=== PATIENT | male | born 1955 | race African-American/Black ===

== ENCOUNTER 2017-01-26 21:19 | Inpatient (IN) | payer SELFPAY ==
[~2017-01-26] VITALS: Ht 182.9 cm; Wt 88.8 kg
[~2017-01-26 21:19] MED LIST: LOMO PO; PRIN10TA PO; ZOFR4TAB3 SL; glucometer
[2017-01-26 21:20] VITALS: BP 240/119; PULSE 106; RESP 16; TEMP 98.6; O2SAT 97
--- NOTE | 2017-01-26 21:42 | PD ---
Physical Exam Date Seen by Provider: Jan 26, 2017 Time Seen by Provider: 21:40 Narrative 61-year-old black male presents emergency department for evaluation of hypertension. Patient has not been on his medicine recently. Vital signs reviewed. Pt waiting for bed placement. Data Data Last Documented VS Vital Signs Date Time Temp Pulse Resp B/P (MAP) Pulse Ox O2 Delivery O2 Flow Rate FiO2 01/26/17 21:20 98.6 106 16 240/119 (159) 97 Room Air [facility] Medical Record Reviewed: No Supervised Visit with KARI: Walker Bagley Jan 26, 2017 21:42
--- NOTE | 2017-01-26 21:53 | PD ---
HPI Chief Complaint: Hypertension Time Seen by Provider: 21:52 Travel History International Travel<30 days: No Contact w/Intl Traveler<30days: No Traveled to known affect area: No History of Present Illness HPI 61-year-old Afro-Honduran male presents emergency Department with reports of "getting in an argument earlier, and feeling like his blood pressure was elevated." Patient has history of hypertension which was treated in the distant past but he can't remember when, or with what. Patient also states he is type II diabetic but is not taking any current medications. 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 Patient denies headache, chest pain, shortness breath, or edema. Patient states he is over his argument, but did state he was somewhat depressed at that time but denies suicidal or homicidal ideation. He does not smoke, drink, or use other drugs. He currently takes no medications. He is currently pain-free. He has no known drug allergies. PFSH Past Medical History Diabetes: Yes Patient Takes Glucophage: No Diminished Hearing: No Tetanus Vaccination: Unknown Influenza Vaccination: No Past Surgical History Surgical History: No Previous Surgery Social History Alcohol Use: No Tobacco Use: No Substance Use: No Allergies-Medications (Allergen,Severity, Reaction): Coded Allergies: No Known Allergies (Verified Adverse Reaction, Unknown, 01/26/17) Reported Meds & Prescriptions Reported Meds & Active Scripts Active No Active Prescriptions or Reported Medications Review of Systems Except as stated in HPI: all other systems reviewed are Neg General / Constitutional: No: Fever Eyes: No: Visual changes HENT: No: Headaches Cardiovascular: No: Chest Pain or Discomfort Respiratory: No: Shortness of Breath Gastrointestinal: No: Abdominal Pain Genitourinary: No: Dysuria Musculoskeletal: No: Pain Skin: No Rash Neurologic: No: Weakness Psychiatric: No: Depression Endocrine: No: Polydipsia Hematologic/Lymphatic: No: Easy Bruising Physical Exam Narrative GENERAL: Patient appears in no acute distress. SKIN: Warm and dry. Normal color. Normal turgor. HEAD: Atraumatic. Normocephalic. EYES: Pupils equal and round. No scleral icterus. No injection or drainage. ENT: No nasal bleeding or discharge. Mucous membranes pink and moist. Pharynx is clear. Airway is patent. NECK: Trachea midline. No JVD. CARDIOVASCULAR: Regular rate and rhythm. RESPIRATORY: No accessory muscle use. Clear to auscultation. Breath sounds equal bilaterally. GASTROINTESTINAL: Abdomen soft, non-tender, nondistended. Hepatic and splenic margins not palpable. MUSCULOSKELETAL: Extremities without clubbing, cyanosis, or edema. No obvious deformities. NEUROLOGICAL: Awake and alert. No obvious cranial nerve deficits. Motor grossly within normal limits. Five out of 5 muscle strength in the arms and legs. Normal speech. PSYCHIATRIC: Appropriate mood and affect; insight and judgment normal. Data Data Last Documented VS Vital Signs Date Time Temp Pulse Resp B/P (MAP) Pulse Ox O2 Delivery O2 Flow Rate FiO2 01/26/17 22:08 108 18 236/121 (159) 99 Room Air 01/26/17 21:20 98.6 Orders Orders Electrocardiogram (01/26/17 22:) Ckmb (Isoenzyme) Profile (01/26/17 22:01) Complete Blood Count With Diff (01/26/17 22:) Comprehensive Metabolic Panel (01/26/17 22:) Magnesium (Mg) (01/26/17 22:01) Prothrombin Time / Inr (Pt) (01/26/17 22:01) Act Partial Throm Time (Ptt) (01/26/17 22:01) Troponin I (01/26/17 22:01) Chest, Single Ap (01/26/17 22:01) Ecg Monitoring (01/26/17 22:) Bilateral Bp Monitoring (01/26/17 22:01) Iv Access Insert/Monitor (01/26/17 22:01) Oximetry (01/26/17 22:01) Oxygen Administration (01/26/17 22:01) Sodium Chloride 0.9% Flush (Ns Flush) (01/26/17 22:15) Sodium Chlorid 0.9% 500 Ml Inj (Ns 500 M (01/26/17 22:15) Blood Glucose (01/26/17 22:01) Diltiazem Inj (Cardizem Inj) (01/26/17 22:15) B-Type Natriuretic Peptide (01/26/17 22:36) MDM Medical Decision Making Medical Screen Exam Complete: Yes Emergency Medical Condition: Yes Differential Diagnosis Hypertensive crisis. Renal disease. Type 2 diabetes. Narrative Course Patient is medically stable at time of exam. EKG shows sinus tachycardia with moderate T-wave abnormalities noted. Labs ordered including CBC, CMP, cardiac panel, PT PTT and INR, proBNP. Chest x-ray is ordered. IV access is obtained and the patient is given 20 mg diltiazem IV. Chest x-ray shows mild hazy opacity in the lung bases that present on atelectasis per the radiologist. 2300 hrs. labs are pending. Patient is discussed with Dr. Hassan who assumes care of the patient will determine final disposition. Scripts No Active Prescriptions or Reported Meds Condition: Stable Javy Amado Jan 26, 2017 21:53
[2017-01-26 22:06] VITALS: BP 251/130; PULSE 108; RESP 18; O2SAT 98
[2017-01-26 22:08] VITALS: BP 236/121; PULSE 108; RESP 18; O2SAT 99
[2017-01-26] MEDS ORDERED: DILTIAZEM HCL 25 MG/5 ML VIAL IV ONE (22:15)
[2017-01-26] MEDS ORDERED: SODIUM CHLORIDE 0.9% FLUSH 10 ML FLUSH IVF PRN (22:15)
[2017-01-26] MEDS ORDERED: SODIUM CHLORID 0.9% 500 ML INJ 500 ML IV ONE (22:15)
--- NOTE | 2017-01-26 22:28 | RADRPT ---
EXAM DATE/TIME: 01/26/2017 22:23 [facility] COMPARISON: No previous studies available for comparison. INDICATIONS : Chest pain. MEDICAL HISTORY : Hypertension. SURGICAL HISTORY : None. ENCOUNTER: Initial ACUITY: 1 day PAIN SCORE: 9/10 LOCATION: middle chest. FINDINGS: A single view of the chest demonstrates the lungs to be symmetrically aerated without evidence of mas s, consolidative infiltrate or effusion. There is mild hazy opacity at the lung bases. The cardiomed iastinal contours are unremarkable. Osseous structures are intact. CONCLUSION: Mild hazy opacity in the lung bases are present atelectasis. Lake Ruiz MD on January 26, 2017 at 22:26 Board Certified Radiologist. This report was verified electronically.
[2017-01-26 23:05] LABS: AUTOMATED NEUTROPHIL # 3.4 TH/MM3 (1.8-7.7); BASOPHIL # 0.1 TH/MM3 (0-0.2); BASOPHIL % 1.1 % (0.0-2.0); EOSINOPHIL # 0.2 TH/MM3 (0-0.4); EOSINOPHIL % 2.9 % (0.0-4.0); HEMATOCRIT 35.4 % (39.0-51.0); HEMO FLAGS DIFF FINAL; LYMPH % 33.9 % (9.0-44.0); LYMPHOCYTE # 2.3 TH/MM3 (1.0-4.8); MEAN CELL VOLUME 80.7 FL (80.0-100.0); MEAN CORPUSCULAR HEMOGLOBIN 27.4 PG (27.0-34.0); MEAN CORPUSCULAR HGB CONC 33.9 % (32.0-36.0); MONO % 10.5 % (0.0-8.0); NEUT % 51.6 % (16.0-70.0); PLATELET COUNT 184 TH/MM3 (150-450); RED BLOOD COUNT 4.38 MIL/MM3 (4.50-5.90); RED CELL DISTRIBUTION WIDTH 14.4 % (11.6-17.2); WHITE BLOOD COUNT 6.6 TH/MM3 (4.0-11.0)
[2017-01-26 23:18] LABS: APTT (PATIENT) 25.8 SEC (24.3-30.1); PROTHROMBIN TIME - PATIENT 11.6 SEC (9.8-11.6)
[2017-01-26 23:31] LABS: ALKALINE PHOSPHATASE 75 U/L (45-117); ALT (GPT) 50 U/L (12-78); ANION GAP 9 MEQ/L (5-15); AST (GOT) 46 U/L (15-37); BICARBONATE 25.4 MEQ/L (21.0-32.0); BLOOD UREA NITROGEN 25 MG/DL (7-18); CHLORIDE 103 MEQ/L (98-107); CREATINE KINASE 489 U/L (39-308); GLOMERULAR FILTRATION RATE 56 ML/MIN (>89); MAGNESIUM 1.7 MG/DL (1.5-2.5); POTASSIUM 4.2 MEQ/L (3.5-5.1); SODIUM (NA) 137 MEQ/L (136-145); TOTAL BILIRUBIN ADULT 0.4 MG/DL (0.2-1.0)
[2017-01-26 23:43] LABS: CKMB 6.9 NG/ML (0.5-3.6)
[2017-01-27] VITALS (18 sets, daily range): BP systolic 146–225; BP diastolic 79–115; PULSE 93–105; RESP 16–28; TEMP 98.4–98.7; O2SAT 96–100
[2017-01-27] MEDS ORDERED: FUROSEMIDE 40 MG/4 ML VIAL IV PUSH ONE
[2017-01-27] MEDS ORDERED: NITROGLYCERIN-D5W 50 MG/250 ML 250 ML IV ONE
--- NOTE | 2017-01-27 00:04 | PD ---
Data Data Last Documented VS Vital Signs Date Time Temp Pulse Resp B/P (MAP) Pulse Ox O2 Delivery O2 Flow Rate FiO2 01/26/17 22:08 108 18 236/121 (159) 99 Room Air 01/26/17 21:20 98.6 Orders Orders Electrocardiogram (01/26/17 22:01) Ckmb (Isoenzyme) Profile (01/26/17 22:01) Complete Blood Count With Diff (01/26/17 22:01) Comprehensive Metabolic Panel (01/26/17 22:) Magnesium (Mg) (01/26/17 22:01) Prothrombin Time / Inr (Pt) (01/26/17 22:01) Act Partial Throm Time (Ptt) (01/26/17 22:01) Troponin I (01/26/17 22:) Chest, Single Ap (01/26/17 22:01) Ecg Monitoring (01/26/17 22:01) Bilateral Bp Monitoring (01/26/17 22:) Iv Access Insert/Monitor (01/26/17 22:) Oximetry (01/26/17 22:) Oxygen Administration (01/26/17 22:01) Sodium Chloride 0.9% Flush (Ns Flush) (01/26/17 22:15) Sodium Chlorid 0.9% 500 Ml Inj (Ns 500 M (01/26/17 22:15) Blood Glucose (01/26/17 22:01) Diltiazem Inj (Cardizem Inj) (01/26/17 22:15) B-Type Natriuretic Peptide (01/26/17 22:36) CKMB (01/26/17 22:55) CKMB% (01/26/17 22:55) Nitroglycerin-D5w 50 Mg/250 Ml (Nitrogly (01/27/17 00:00) Furosemide Inj (Lasix Inj) (01/27/17 00:00) Drug Screen, Random Urine (01/27/17 00:09) Admit Order (Ed Use Only) (01/27/17 ) Pest Control Chemical Technician / Telemetry CATRACHO.Q8H (01/27/17 00:11) Vital Signs (Adult) Q4H (01/27/17 00:11) Diet Heart Healthy (01/27/17 Breakfast) Activity Bed Rest (01/27/17 00:11) Labs Laboratory Tests Test 01/26/17 22:55 White Blood Count 6.6 TH/MM3 Red Blood Count 4.38 MIL/MM3 Hemoglobin 12.0 GM/DL Hematocrit 35.4 % Mean Corpuscular Volume 80.7 FL Mean Corpuscular Hemoglobin 27.4 PG Mean Corpuscular Hemoglobin Concent 33.9 % Red Cell Distribution Width 14.4 % Platelet Count 184 TH/MM3 Mean Platelet Volume 9.6 FL Neutrophils (%) (Auto) 51.6 % Lymphocytes (%) (Auto) 33.9 % Monocytes (%) (Auto) 10.5 % Eosinophils (%) (Auto) 2.9 % Basophils (%) (Auto) 1.1 % Neutrophils # (Auto) 3.4 TH/MM3 Lymphocytes # (Auto) 2.3 TH/MM3 Monocytes # (Auto) 0.7 TH/MM3 Eosinophils # (Auto) 0.2 TH/MM3 Basophils # (Auto) 0.1 TH/MM3 CBC Comment DIFF FINAL Differential Comment Prothrombin Time 11.6 SEC Prothromb Time International Ratio 1.0 RATIO Activated Partial Thromboplast Time 25.8 SEC Blood Urea Nitrogen 25 MG/DL Creatinine 1.54 MG/DL Random Glucose 154 MG/DL Total Protein 7.9 GM/DL Albumin 3.3 GM/DL Calcium Level 8.5 MG/DL Magnesium Level 1.7 MG/DL Alkaline Phosphatase 75 U/L Aspartate Amino Transf (AST/SGOT) 46 U/L Alanine Aminotransferase (ALT/SGPT) 50 U/L Total Bilirubin 0.4 MG/DL Sodium Level 137 MEQ/L Potassium Level 4.2 MEQ/L Chloride Level 103 MEQ/L Carbon Dioxide Level 25.4 MEQ/L Anion Gap 9 MEQ/L Estimat Glomerular Filtration Rate 56 ML/MIN Total Creatine Kinase 489 U/L Creatine Kinase MB 6.9 NG/ML Creatine Kinase MB % 1.4 % Troponin I 0.04 NG/ML B-Type Natriuretic Peptide 514 PG/ML MDM Medical Record Reviewed: Yes Supervised Visit with KARI: Yes Narrative Course I, Dr. Hassan, have reviewed the advance practice practitioner's documentation and am in agreement, met with the patient face to face, made the diagnosis, and the medical decision making was done by me. *My assessment and Findings: The patient has new CHF. He is hypertensive at 230/112 with a heart rate of 110. He denies feeling short of breath or having chest pain and appears comfortable. 40 mg IV Lasix given. Nitro drip started. Patient has no outside follow-up and will be admitted for new onset CHF. d/w Dr Finney Diagnosis Primary Impression: CHF (congestive heart failure) Qualified Codes: I50.9 - Heart failure, unspecified Additional Impression: Hypertension Qualified Codes: I10 - Essential (primary) hypertension Admitting Information Admitting Physician Requests: Observation Scripts No Active Prescriptions or Reported Meds Condition: Stable Dandre Hassan MD Jan 27, 2017 00:04
[2017-01-27] MEDS ORDERED: SENNOSIDES 8.6 MG TAB PO PRN (00:15)
[2017-01-27] MEDS ORDERED: LACTULOSE SYRUP 20 GM/30 ML CUP PO PRN (00:15)
[2017-01-27] MEDS ORDERED: NALOXONE HCL 0.4 MG/ML AMP IV PUSH PRN (00:15)
[2017-01-27] MEDS ORDERED: BISACODYL 10 MG SUPP RECTAL PRN (00:15)
[2017-01-27] MEDS ORDERED: ONDANSETRON HCL 4 MG/2 ML VIAL IVP PRN (00:15)
[2017-01-27] MEDS ORDERED: MAGNESIUM HYDROXIDE SUSP 30 ML CUP PO PRN (00:15)
[2017-01-27] MEDS ORDERED: SODIUM CHLORIDE 0.9% FLUSH 10 ML FLUSH IV FLUSH PRN (00:15)
[2017-01-27] MEDS ORDERED: CARVEDILOL 3.125 MG TAB PO ONE (00:15)
[2017-01-27] MEDS ORDERED: ENALAPRILAT 1.25 MG/ML VIAL IV PUSH PRN ×2 (00:45→10:30)
--- NOTE | 2017-01-27 00:47 | HHI.HP ---
[facility] No Primary Care Physician Admission Diagnosis CHF, HTN Diagnoses: Travel History International Travel<30 Days: No Contact w/Intl Traveler <30 Da: No Traveled to Known Affected Are: No History of Present Illness 61-year-old male with a history of hypertension, not on medications for the past year, diabetes diet supposedly controlled who presents with a three-week history of mild nonproductive cough, 2 day history of generalized fatigue; he got into an argument today with his significant other, and felt that his blood pressure was high. He denies any chest pain or shortness of breath. Patient said he did start taking a cough/cold medicine 2 days ago, which correlates with the onset of his generalized fatigue. She denies any fevers, chills, nausea, vomiting, diarrhea, constipation, dysuria, headache. 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 Review of Systems Except as stated in HPI: all other systems reviewed are Neg Past Family Social History Past Medical History Hypertension not on medications at this time. Diabetes. Past Surgical History Patient denies any history of surgery Allergies: Coded Allergies: No Known Allergies (Verified Adverse Reaction, Unknown, 01/26/17) Family History Patient is unsure what his parents from. He is unsure of the medical history. Social History Patient denies any history of smoking. Denies any drinking. Denies any illicit drugs. Physical Exam Vital Signs Vital Signs Date Time Temp Pulse Resp B/P (MAP) Pulse Ox O2 Delivery O2 Flow Rate FiO2 01/26/17 22:08 108 18 236/121 (159) 99 Room Air 01/26/17 22:06 108 18 251/130 (170) 98 Room Air 01/26/17 21:43 16 01/26/17 21:20 98.6 106 16 240/119 (159) 97 Room Air Physical Exam GENERAL: This is a well-nourished, well-developed patient, in no apparent distress. Alert and oriented 3. SKIN: No rashes, ecchymoses or lesions. Cool and dry. HEAD: Atraumatic. Normocephalic. No temporal or scalp tenderness. EYES: Pupils equal round and reactive. Extraocular motions intact. No scleral icterus. No injection or drainage. ENT: Nose without bleeding, purulent drainage or septal hematoma. Throat without erythema, tonsillar hypertrophy or exudate. Uvula midline. Airway patent. NECK: Trachea midline. No JVD or lymphadenopathy. Supple, nontender, no meningeal signs. CARDIOVASCULAR: Regular rate and rhythm without murmurs, gallops, or rubs. RESPIRATORY: Clear to auscultation. Breath sounds equal bilaterally. No wheezes , rales, or rhonchi. GASTROINTESTINAL: Abdomen soft, non-tender, nondistended. No hepato-splenomegaly , or palpable masses. No guarding. MUSCULOSKELETAL: Extremities without clubbing, cyanosis, or edema. No joint tenderness, effusion, or edema noted. No calf tenderness. Negative Homans sign bilaterally. NEUROLOGICAL: Awake and alert. Right eye visual loss. Left eye for reactive. Vision intact in the left eye. Cranial nerves otherwise intact. Motor and sensory grossly within normal limits. Five out of 5 muscle strength in all muscle groups. Normal speech. Laboratory Laboratory Tests Test 01/26/17 22:55 White Blood Count 6.6 Red Blood Count 4.38 Hemoglobin 12.0 Hematocrit 35.4 Mean Corpuscular Volume 80.7 Mean Corpuscular Hemoglobin 27.4 Mean Corpuscular Hemoglobin Concent 33.9 Red Cell Distribution Width 14.4 Platelet Count 184 Mean Platelet Volume 9.6 Neutrophils (%) (Auto) 51.6 Lymphocytes (%) (Auto) 33.9 Monocytes (%) (Auto) 10.5 Eosinophils (%) (Auto) 2.9 Basophils (%) (Auto) 1.1 Neutrophils # (Auto) 3.4 Lymphocytes # (Auto) 2.3 Monocytes # (Auto) 0.7 Eosinophils # (Auto) 0.2 Basophils # (Auto) 0.1 CBC Comment DIFF FINAL Differential Comment Prothrombin Time 11.6 Prothromb Time International Ratio 1.0 Activated Partial Thromboplast Time 25.8 Blood Urea Nitrogen 25 Creatinine 1.54 Random Glucose 154 Total Protein 7.9 Albumin 3.3 Calcium Level 8.5 Magnesium Level 1.7 Alkaline Phosphatase 75 Aspartate Amino Transf (AST/SGOT) 46 Alanine Aminotransferase (ALT/SGPT) 50 Total Bilirubin 0.4 Sodium Level 137 Potassium Level 4.2 Chloride Level 103 Carbon Dioxide Level 25.4 Anion Gap 9 Estimat Glomerular Filtration Rate 56 Total Creatine Kinase 489 Creatine Kinase MB 6.9 Creatine Kinase MB % 1.4 Troponin I 0.04 B-Type Natriuretic Peptide 514 Result Diagram: 01/26/17225401/26/172254 Imaging Last Impressions Chest X-Ray 01/26/172200 Signed Impressions: Service Date/Time: Thursday, January 26, 2017 22:23 - CONCLUSION: Mild hazy opacity in the lung bases are present atelectasis. MD Juancarlos Calvin VTE Risk Assessment Juancarlos VTE Risk Assessment: No/Low Risk (score <= 1) Caprini Risk Assessment Model Point Value = 1 Point Value = 2 Point Value = 3 Point Value = 5 Age 41-60 Minor surgery BMI > 25 kg/m2 Swollen legs Varicose veins or History of unexplained or recurrent spontaneous Oral contraceptives or hormone replacement Sepsis (< 1 month) Serious lung disease, including pneumonia (< 1 month) Abnormal pulmonary function Acute myocardial infarction Congestive heart failure (< 1 month) History of inflammatory bowel disease Medical patient at bed rest Age 61-74 Arthroscopic surgery Major open surgery (> 45 min) Laparoscopic surgery (> 45 min) Malignancy Confined to bed (> 72 hours) Immobilizing plaster cast Central venous access Age >= 75 History of VTE Family history of VTE Factor V Leiden Prothrombin [id number] Lupus anticoagulant Anticardiolipin antibodies Elevated serum homocysteine Heparin-induced thrombocytopenia Other congenital or acquired thrombophilia Stroke (< 1 month) Elective arthroplasty Hip, pelvis, or leg fracture Acute spinal cord injury (< 1 month) Prophylaxis Regimen Total Risk Factor Score Risk Level Prophylaxis Regimen 0-1 Low Early ambulation 2 Moderate Order ONE of the following: *Sequential Compression Device (SCD) *Heparin 5000 units SQ BID 3-4 Higher Order ONE of the following medications: *Heparin 5000 units SQ TID *Enoxaparin/Lovenox 40 mg SQ daily (WT < 150 kg, CrCl > 30 mL/min) *Enoxaparin/Lovenox 30 mg SQ daily (WT < 150 kg, CrCl > 10-29 mL/min) *Enoxaparin/Lovenox 30 mg SQ BID (WT < 150 kg, CrCl > 30 mL/min) AND/OR *Sequential Compression Device (SCD) 5 or more Highest Order ONE of the following medications: *Heparin 5000 units SQ TID (Preferred with Epidurals) *Enoxaparin/Lovenox 40 mg SQ daily (WT < 150 kg, CrCl > 30 mL/min) *Enoxaparin/Lovenox 30 mg SQ daily (WT < 150 kg, CrCl > 10-29 mL/min) *Enoxaparin/Lovenox 30 mg SQ BID (WT < 150 kg, CrCl > 30 mL/min) AND *Sequential Compression Device (SCD) Assessment and Plan Assessment and Plan //Accelerated hypertension. -Systolic blood pressure 240 on admission -With secondary CHF exacerbation. -Likely secondary to cough medicine. -Patient denies illicit drugs. Drug screen pending. -Counseled patient on avoiding cough medicine Blood pressure not improved after diltiazem, Lasix in the ER. Nitroglycerin drip has been started. -We'll start on Coreg, daily Lasix, losartan expect to start isosorbide tomorrow //CHF exacerbation. BNP in the 500s. -No pulmonary edema. Trace peripheral edema. Cardiac exam pending. Likely exacerbated by hypertension, 2/2 to cough medicine //Nonproductive cough past 3 weeks. Atelectasis on chest x-ray. Personally reviewed. -ipratropium nebs, Incentive spirometer and Acapella //Impaired kidney function. Creatinine 1.5. Unknown baseline. Continue to monitor. //History of diabetes mellitus - Patient reports controlled with diet. We'll check A1c. Insulin sliding scale Discussed Condition With Patient, nurse, ED physician Physician Certification 2 Midnight Certification Type: Admission for Inpatient Services Order for Inpatient Services The services are ordered in accordance with Medicare regulations or non- Medicare payer requirements, as applicable. In the case of services not specified as inpatient-only, they are appropriately provided as inpatient services in accordance with the 2-midnight benchmark. Estimated LOS (days): 2 days is the estimated time the patient will need to remain in the hospital, assuming treatment plan goals are met and no additional complications. Post-Hospital Plan: Arvin Bellamy MD Jan 27, 2017 00:47
[2017-01-27] MEDS ORDERED: CHLORHEXIDINE GLUCONATE 2 % 1 PACK (2 CLOTHS)(extra cloths) TOPICAL PRN (02:30)
[2017-01-27] MEDS: RESP: IPRATROPIUM 0.5 MG/2.5 ML NEB NEB SCH ×4 (03:30→21:15)
[2017-01-27] MEDS: CHLORHEXIDINE GLUCONATE 2 % 1 PACK (2 CLOTHS)(taper/protocol) TOPICAL SCH (04:00)
[2017-01-27] MEDS ORDERED: INSULIN ASPART SUPPLEMENTAL SCALE SQ SCH (08:00)
[2017-01-27] MEDS ORDERED: LOSARTAN 25 MG TAB PO SCH (09:00)
[2017-01-27] MEDS ORDERED: CARVEDILOL 3.125 MG TAB PO SCH (09:00)
[2017-01-27] MEDS ORDERED: LISINOPRIL 10 MG TAB PO SCH (09:00)
[2017-01-27] MEDS ORDERED: FUROSEMIDE 20 MG TAB PO SCH (09:00)
[2017-01-27] MEDS: SODIUM CHLORIDE 0.9% FLUSH 10 ML FLUSH IV FLUSH SCH ×2 (10:01→21:48)
[2017-01-27] MEDS ORDERED: DEXTROSE 50% IN WATER 50 ML VIAL(D50) IV PUSH PRN (10:30)
[2017-01-27] MEDS ORDERED: cloNIDine HCL 0.1 MG TAB PO PRN (10:30)
[2017-01-27] MEDS ORDERED: GLUCAGON 1 MG/ML VIAL OTHER PRN (10:30)
--- NOTE | 2017-01-27 11:09 | HHI.PR ---
Subjective Remarks follow-up accelerated hypertension. Still requiring nitro drip. Improving lightheadedness and weakness. Discussed with RN Objective Vitals Vital Signs Date Time Temp Pulse Resp B/P (MAP) Pulse Ox O2 Delivery O2 Flow Rate FiO2 01/27/17 09:06 98 01/27/17 06:00 97 01/27/17 04:00 97 01/27/17 03:31 99 01/27/17 03:30 97 187/104 01/27/17 03:15 97 184/103 01/27/17 03:00 97 197/106 01/27/17 02:35 106 215/105 01/27/17 02:30 105 01/27/17 02:11 101 20 193/104 (133) 100 Room Air 01/27/17 02:01 100 18 200/101 (134) 96 Room Air 01/27/17 01:37 101 18 212/115 (147) 99 Room Air 01/27/17 01:17 103 16 225/107 (146) 99 Room Air 01/27/17 00:36 110 232/115 01/26/17 22:08 108 18 236/121 (159) 99 Room Air 01/26/17 22:06 108 18 251/130 (170) 98 Room Air 01/26/17 21:43 16 01/26/17 21:20 98.6 106 16 240/119 (159) 97 Room Air I/O 01/26/17 01/26/17 01/26/17 01/27/17 01/27/17 01/27/17 07:00 15:00 23:00 07:00 15:00 23:00 Intake Total 500 ml Output Total 1950 ml Balance -1450 ml Intake IV Total 500 ml Output Urine Total 1950 ml # Voids 5 Result Diagram: 01/26/17225401/26/172254 Imaging Last Impressions Chest X-Ray 01/26/172200 Signed Impressions: Service Date/Time: Thursday, January 26, 2017 22:23 - CONCLUSION: Mild hazy opacity in the lung bases are present atelectasis. Lake Ruiz MD Objective Remarks GENERAL: Well-developed, well-nourished critically ill patient SKIN: Warm and dry. HEAD: Atraumatic. Normocephalic. CARDIOVASCULAR: Regular rate and rhythm. RESPIRATORY: No accessory muscle use. Clear to auscultation. Breath sounds equal bilaterally. GASTROINTESTINAL: Abdomen soft, non-tender, nondistended. MUSCULOSKELETAL: Extremities without clubbing, cyanosis, or edema. No obvious deformities. NEUROLOGICAL: Awake and alert. No obvious cranial nerve deficits. Motor grossly within normal limits. Five out of 5 muscle strength in the arms and legs. Normal speech. Procedures none A/P Problem List: (1) Hypertension ICD Code: I10 - Essential (primary) hypertension Status: Acute (2) CHF (congestive heart failure) ICD Code: I50.9 - Heart failure, unspecified Status: Acute Assessment and Plan Accelerated hypertension with history of noncompliance. -Systolic blood pressure 240 on admission -With secondary CHF exacerbation. -Likely secondary to cough medicine. -Patient denies illicit drugs. Drug screen pending. -Counseled patient on avoiding cough medicine with decongestant Blood pressure not improved after diltiazem, Lasix in the ER. Nitroglycerin drip has been started. Wean and discontinue keep blood pressure less than 160/ 90 -Continue Coreg, daily Lasix, losartan expect to start isosorbide tomorrow. Add as needed IV hydralazine and by mouth clonidine CHF exacerbation. BNP in the 500s. -No pulmonary edema. Trace peripheral edema. Echocardiogram pending. Likely exacerbated by hypertension, 2/2 to cough medicine Troponin elevation. Patient denies chest pain. Likely secondary to uncontrolled hypertension. Await echocardiogram. Consider stress test Nonproductive cough past 3 weeks. Atelectasis on chest x-ray. Personally reviewed. -ipratropium nebs, Incentive spirometer and Acapella Chronic kidney disease stage II. Avoid nephrotoxins. Continue to monitor closely while on Lasix and losartan. Slightly elevated AST likely from passive congestion. Monitor History of diabetes mellitus - Patient reports controlled with diet. We'll check A1c. Insulin sliding scale DVT prophylaxis with SCD and early ambulation. Hold Pharmacological prophylaxis pending control of BP. Discharge Planning Patient is critically ill and needs to be monitored in the ICU setting currently requiring intravenous antihypertensives. Critical care time spent 35 minutes Problem Qualifiers (1) Hypertension: Qualified Codes: I10 - Essential (primary) hypertension (2) CHF (congestive heart failure): Qualified Codes: I50.9 - Heart failure, unspecified Jonny Treviño MD Jan 27, 2017 11:09
--- NOTE | 2017-01-27 12:25 | ECHRPT ---
Indication: HEART FAILURE CONCLUSIONS Normal left ventricular size. Moderate concentric left ventricular hypertrophy. The left ventricular systolic function is normal with an estimated ejection fraction in the range of 60-65%. Normal wall motion. The left atrial size is mildly dilated. Mild aortic valve sclerosis is present. Mild aortic valve regurgitation. There is mild tricuspid valve regurgitation. There is estimated mild systolic pulmonary pressure is 40 mm Hg,. BP: 187 / 104 HR: Rhythm: Sinus MEASUREMENTS (Male / Female) Normal Values Technical Quality:Fair 2D ECHO LV Diastolic Diameter PLAX 4.6 cm 4.2 - 5.9 / 3.9 - 5.3 cm LV Systolic Diameter PLAX 3.4 cm IVS Diastolic Thickness 1.4 cm 0.6 - 1.0 / 0.6 - 0.9 cm LVPW Diastolic Thickness 1.4 cm 0.6 - 1.0 / 0.6 - 0.9 cm LV Relative Wall Thickness 0.6 LVOT Diameter 2.2 cm Aortic Root Diameter 3.2 cm LA Systolic Diameter LX 3.5 cm 3.0 - 4.0 / 2.7 - 3.8 cm M-MODE AV Cusp Separation MM 1.6 cm DOPPLER AV Peak Velocity 215.0 cm/s AV Peak Gradient 18.5 mmHg AV Mean Gradient 11.0 mmHg AV Velocity Time Integral 37.2 cm AI Peak Velocity 473.0 cm/s AI Peak Gradient 89.5 mmHg AI Pressure Half Time 436.0 ms LVOT Peak Velocity 112.0 cm/s LVOT Peak Gradient 5.0 mmHg LVOT Velocity Time Integral 19.8 cm AV Area Cont Eq vti 2.0 cm AV Area Cont Eq pk 2.0 cm Mitral E Point Velocity 90.3 cm/s Mitral A Point Velocity 118.0 cm/s Mitral E to A Ratio 0.8 LV E' Lateral Velocity 6.0 cm/s Mitral E to LV E' Lateral Ratio 14.9 LV E' Septal Velocity 4.9 cm/s Mitral E to LV E' Septal Ratio 18.5 TR Peak Velocity 276.0 cm/s TR Peak Gradient 30.5 mmHg PV Peak Velocity 91.0 cm/s PV Peak Gradient 3.3 mmHg FINDINGS LEFT VENTRICLE Normal left ventricular size. Moderate concentric left ventricular hypertrophy. The left ventricular systolic function is normal with an estimated ejection fraction in the range of 60-65%. Normal wall motion. RIGHT VENTRICLE Normal right ventricular size and systolic function. LEFT ATRIUM The left atrial size is mildly dilated. RIGHT ATRIUM The right atrial size is normal. ATRIAL SEPTUM Normal atrial septal thickness without atrial level shunting by limited color doppler interrogation. AORTA The aortic root and proximal ascending aorta are normal in size on limited imaging. MITRAL VALVE Structurally normal mitral valve. No mitral valve stenosis or regurgitation. AORTIC VALVE Mild aortic valve sclerosis is present. Mild aortic valve regurgitation. TRICUSPID VALVE There is mild tricuspid valve regurgitation. There is estimated mild systolic pulmonary pressure is 40 mm Hg, PULMONARY VALVE The pulmonary valve is not well visualized. VESSELS The inferior vena cava is normal in size. PERICARDIUM No pericardial effusion. Segun Hwang MD (Electronically Signed) Final Date:27 January 2017 12:24
[2017-01-27] MEDS: INSULIN ASPART SUPPLEMENTAL SCALE SQ SCH ×3 (12:29→21:59)
[2017-01-27 14:12] LABS: BICARBONATE 25.8 MEQ/L (21.0-32.0); POTASSIUM 3.8 MEQ/L (3.5-5.1)
[2017-01-27] MEDS ORDERED: NITROGLYCERIN-D5W 50 MG/250 ML 250 ML IV PRN (14:45)
[2017-01-27] MEDS: amLODIPine BESYLATE 5 MG TAB PO SCH (15:06)
--- NOTE | 2017-01-27 15:19 | EKG ---
Date Performed: 01/27/2017 Time Performed: 07:11:29 PTAGE: 61 years EKG: Sinus rhythm POSSIBLE LEFT ATRIAL ENLARGEMENT SEPTAL MYOCARDIAL INFARCTION , OF INDETERMINATE AGE MODERATE T-WAVE ABNORMALITY ABNORMAL ECG PREVIOUS TRACING : 01/27/2017 01.30 Compared to prior tracing no significant change DOCTOR: Margot Garcia Interpretating Date/Time 01/27/2017 15:19:14
--- NOTE | 2017-01-27 15:31 | EKG ---
Date Performed: 01/27/2017 Time Performed: 01:30:27 PTAGE: 61 years EKG: SINUS TACHYCARDIA LEFT ATRIAL ENLARGEMENT SEPTAL MYOCARDIAL INFARCTION MODERATE T-WAVE ABNO RMALITY ABNORMAL ECG PREVIOUS TRACING : 01/26/2017 21.49 Compared to prior tracing no significant change DOCTOR: Margot Garcia Interpretating Date/Time 01/27/2017 15:29:25
--- NOTE | 2017-01-27 15:36 | EKG ---
Date Performed: 01/26/2017 Time Performed: 21:49:19 PTAGE: 61 years EKG: SINUS TACHYCARDIA POSSIBLE LEFT ATRIAL ENLARGEMENT SEPTAL MYOCARDIAL INFARCTION MODERATE T- WAVE ABNORMALITY ABNORMAL ECG PREVIOUS TRACING : 06/18/2000 23.43 Compared to the previous tracing T wave changes now present DOCTOR: Margot Garcia Interpretating Date/Time 01/27/2017 15:34:47
[2017-01-27 15:58] LABS: HEMOGLOBIN A1b 0.9 %; HEMOGLOBIN F 1.2 %; HEMOGLOBIN LA1C 2.7 %; HEMOGLOBIN P3 4.8 %
[2017-01-27] MEDS: CARVEDILOL 3.125 MG TAB PO SCH (21:48)
[2017-01-28] VITALS (33 sets, daily range): BP systolic 129–194; BP diastolic 64–97; PULSE 70–113; RESP 0–32; TEMP 98.1–99.2; O2SAT 95–100
[2017-01-28] MEDS: RESP: IPRATROPIUM 0.5 MG/2.5 ML NEB NEB SCH ×4 (03:06→21:53)
[2017-01-28] MEDS: CHLORHEXIDINE GLUCONATE 2 % 1 PACK (2 CLOTHS)(taper/protocol) TOPICAL SCH (04:00)
[2017-01-28 06:53] LABS: AUTOMATED NEUTROPHIL # 4.8 TH/MM3 (1.8-7.7); BASOPHIL # 0.1 TH/MM3 (0-0.2); BASOPHIL % 0.6 % (0.0-2.0); EOSINOPHIL # 0.2 TH/MM3 (0-0.4); EOSINOPHIL % 1.9 % (0.0-4.0); HEMATOCRIT 31.4 % (39.0-51.0); HEMO FLAGS DIFF FINAL; LYMPH % 22.8 % (9.0-44.0); LYMPHOCYTE # 1.8 TH/MM3 (1.0-4.8); MEAN CELL VOLUME 80.3 FL (80.0-100.0); MEAN CORPUSCULAR HEMOGLOBIN 26.7 PG (27.0-34.0); MEAN CORPUSCULAR HGB CONC 33.2 % (32.0-36.0); MONO % 14.1 % (0.0-8.0); NEUT % 60.6 % (16.0-70.0); PLATELET COUNT 148 TH/MM3 (150-450); RED BLOOD COUNT 3.91 MIL/MM3 (4.50-5.90); RED CELL DISTRIBUTION WIDTH 14.5 % (11.6-17.2); WHITE BLOOD COUNT 7.9 TH/MM3 (4.0-11.0)
[2017-01-28 07:15] LABS: ANION GAP 9 MEQ/L (5-15); AST (GOT) 22 U/L (15-37); BICARBONATE 26.9 MEQ/L (21.0-32.0); BLOOD UREA NITROGEN 29 MG/DL (7-18); CHLORIDE 100 MEQ/L (98-107); GLOMERULAR FILTRATION RATE 45 ML/MIN (>89); POTASSIUM 3.8 MEQ/L (3.5-5.1); SODIUM (NA) 136 MEQ/L (136-145)
[2017-01-28 07:18] LABS: ALKALINE PHOSPHATASE 53 U/L (45-117); ALT (GPT) 34 U/L (12-78); TOTAL BILIRUBIN ADULT 0.3 MG/DL (0.2-1.0)
[2017-01-28] MEDS: INSULIN ASPART SUPPLEMENTAL SCALE SQ SCH ×4 (08:00→20:15)
[2017-01-28] MEDS: CARVEDILOL 3.125 MG TAB PO SCH ×2 (10:29→22:06)
[2017-01-28] MEDS: amLODIPine BESYLATE 5 MG TAB PO SCH (10:29)
[2017-01-28] MEDS: SODIUM CHLORIDE 0.9% FLUSH 10 ML FLUSH IV FLUSH SCH ×2 (10:29→20:15)
[2017-01-28] MEDS ORDERED: amLODIPine BESYLATE 5 MG TAB PO ONE (17:15)
--- NOTE | 2017-01-28 17:41 | HHI.PR ---
Subjective Remarks Patient says he is feeling better. Denies any chest pain or shortness of breath. Says the cough is getting better. No bowel movement since admission. Objective Vital Signs Date Time Temp Pulse Resp B/P (MAP) Pulse Ox O2 Delivery O2 Flow Rate FiO2 01/28/17 16:15 100 0 158/82 (107) 98 01/28/17 16:00 97 27 147/75 (99) 97 01/28/17 16:00 97 01/28/17 16:00 98.1 01/28/17 14:00 86 01/28/17 12:45 97 26 132/69 (90) 96 01/28/17 12:30 92 24 130/64 (86) 97 01/28/17 12:15 95 28 143/75 (97) 98 01/28/17 12:00 90 25 138/74 (95) 98 01/28/17 12:00 70 01/28/17 11:45 89 13 139/73 (95) 99 01/28/17 11:30 92 28 135/74 (94) 99 01/28/17 11:15 93 22 140/73 (95) 98 01/28/17 11:00 94 23 139/74 (95) 96 01/28/17 10:45 96 23 150/78 (102) 99 01/28/17 10:30 94 15 148/79 (102) 98 01/28/17 10:15 97 25 147/79 (101) 98 01/28/17 10:00 70 01/28/17 10:00 100 11 161/83 (109) 98 01/28/17 09:45 98 20 151/75 (100) 100 01/28/17 09:39 95 01/28/17 09:30 100 20 151/80 (103) 97 01/28/17 09:15 98 21 156/78 (104) 95 01/28/17 09:00 100 32 129/65 (86) 99 01/28/17 08:45 96 23 153/76 (101) 98 01/28/17 08:30 92 21 143/73 (96) 99 01/28/17 08:15 98 26 150/77 (101) 97 01/28/17 08:00 98.1 01/28/17 08:00 90 01/28/17 08:00 92 19 148/79 (102) 96 01/28/17 06:00 95 01/28/17 04:00 98 01/28/17 04:00 97 17 163/77 (105) 95 01/28/17 02:00 95 01/28/17 00:00 98.5 93 20 129/65 (86) 99 01/28/17 00:00 93 01/27/17 22:00 95 01/27/17 21:16 99 21 01/27/17 20:00 98.6 98 28 164/79 (107) 98 01/27/17 20:00 93 01/27/17 18:00 97 I/O 01/27/17 01/27/17 01/27/17 01/28/17 01/28/17 01/28/17 07:00 15:00 23:00 07:00 15:00 23:00 Intake Total 500 ml 250 ml 100 ml Output Total 1950 ml 601 ml 400 ml Balance -1450 ml 250 ml -601 ml -300 ml Intake Oral 100 ml IV Total 500 ml 250 ml Output Urine Total 1950 ml 600 ml 400 ml Stool Total 1 ml 0 ml # Voids 5 Result Diagram: 01/28/17 0530 01/28/17 0538 Objective Remarks GENERAL: Patient sitting up in bed. Appears comfortable. SKIN: Warm and dry. HEAD: Normocephalic. EYES: No scleral icterus. No injection or drainage. NECK: Supple, trachea midline. CARDIOVASCULAR: Regular rate and rhythm without murmurs, gallops, or rubs. RESPIRATORY: Breath sounds equal bilaterally. No accessory muscle use. GASTROINTESTINAL: Abdomen soft, non-tender, nondistended. MUSCULOSKELETAL: No cyanosis, or edema. BACK: Nontender without obvious deformity. No CVA tenderness. A/P Assessment and Plan //Accelerated hypertension with history of noncompliance. //CHF exacerbation //Aortic insufficiency on echo -Systolic blood pressure 240 on admission -With secondary CHF exacerbation. -Likely secondary to cough medicine. -Patient denies illicit drugs. Drug screen pending. -Counseled patient on avoiding cough medicine with decongestant Blood pressure not improved after diltiazem, Lasix in the ER. Nitroglycerin drip has been started. Wean and discontinue keep blood pressure less than 160/ 90 -Continue Coreg, daily Lasix, losartan expect to start isosorbide tomorrow. Add as needed IV hydralazine and by mouth clonidine -01/28. Still on nitro drip. However much better controlled today, systolic blood pressures in the 150s. Aortic insufficiency on echocardiogram. We'll start nitrates, hydralazine, increase amlodipine. Possibly worsened patient's cough medicine, although urine drug screen is still pending. Consult cardiology for new onset CHF. //Troponin elevation. -Likely secondary to demand ischemia from accelerated hypertension. Troponin peaked at 0.07, down to 0.05. Cardiology will be consulted for CHF. //Nonproductive cough past 3 weeks. Atelectasis on chest x-ray. Personally reviewed. -Improving. Continue ipratropium nebs, Incentive spirometer and Acapella //Chronic kidney disease stage II. Avoid nephrotoxins. Continue to monitor closely while on Lasix and losartan. -01/28. Creatinine up to 1.8. Again, unknown baseline. We'll continue to monitor. If worsens, we'll consider consultation nephrology. Avoid TRUE inhibitor for now. //Slightly elevated AST likely from passive congestion. Resolved. History of diabetes mellitus - Patient reports controlled with diet. A1c 9.0. Diabetic education. Continue Insulin sliding scale. start Levemir. Constipation. Laxatives ordered. DVT prophylaxis with SCD and early ambulation. Hold Pharmacological prophylaxis pending control of BP. Discharge Planning Expect blood pressure be better controlled by tomorrow, patient can possibly go home tomorrow. 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 May need insulin Self-pay. Appreciate cm assistance Arvin Finney MD Jan 28, 2017 17:41
[2017-01-28] MEDS: hydrALAZINE HCL 20 MG/ML VIAL IV PUSH PRN ×2 (18:19→20:16)
[2017-01-28] MEDS ORDERED: DOCUSATE SODIUM 50 MG/SENNA 8.6 MG TAB PO ONE (18:30)
[2017-01-28] MEDS ORDERED: ISOSORBIDE DINITRATE 40 MG SUSTAINED RELEASE TAB PO ONE (18:30)
[2017-01-28] MEDS: hydrALAZINE HCL 50 MG TAB PO SCH ×2 (19:14→22:06)
[2017-01-28] MEDS: INSULIN DETEMIR 100 UNITS/ML VIAL SQ SCH (20:15)
[2017-01-29] VITALS (18 sets, daily range): BP systolic 117–146; BP diastolic 55–70; PULSE 88–103; RESP 1–22; TEMP 98–99; O2SAT 94–99
[2017-01-29] MEDS: RESP: IPRATROPIUM 0.5 MG/2.5 ML NEB NEB SCH ×4 (02:50→20:35)
[2017-01-29] MEDS: CHLORHEXIDINE GLUCONATE 2 % 1 PACK (2 CLOTHS)(taper/protocol) TOPICAL SCH (04:00)
[2017-01-29] MEDS: hydrALAZINE HCL 50 MG TAB PO SCH ×3 (06:13→21:15)
[2017-01-29] MEDS: INSULIN ASPART SUPPLEMENTAL SCALE SQ SCH ×4 (08:00→21:17)
[2017-01-29] MEDS: amLODIPine BESYLATE 5 MG TAB PO SCH (09:00)
[2017-01-29] MEDS: SODIUM CHLORIDE 0.9% FLUSH 10 ML FLUSH IV FLUSH SCH ×2 (09:00→21:17)
[2017-01-29] MEDS: INSULIN DETEMIR 100 UNITS/ML VIAL SQ SCH ×2 (09:00→21:17)
--- NOTE | 2017-01-29 09:14 | HHI.PR ---
Subjective Remarks In bed,. Feels weak. No fever or chills. Denies chest pain or sob. No n/v/d/c. Objective Vitals Vital Signs Date Time Temp Pulse Resp B/P (MAP) Pulse Ox O2 Delivery O2 Flow Rate FiO2 01/29/17 08:01 98 01/29/17 06:00 100 01/29/17 04:00 94 01/29/17 04:00 99.0 94 22 117/55 (75) 96 01/29/17 02:00 93 01/29/17 00:00 93 01/29/17 00:00 99.0 93 17 129/66 (87) 98 01/28/17 22:00 113 01/28/17 21:52 100 21 01/28/17 20:00 99.2 113 20 194/97 (129) 98 01/28/17 20:00 113 01/28/17 18:15 100 01/28/17 18:00 100 01/28/17 16:15 100 0 158/82 (107) 98 01/28/17 16:00 97 27 147/75 (99) 97 01/28/17 16:00 97 01/28/17 16:00 98.1 01/28/17 14:00 86 01/28/17 12:45 97 26 132/69 (90) 96 01/28/17 12:30 92 24 130/64 (86) 97 01/28/17 12:15 95 28 143/75 (97) 98 01/28/17 12:00 90 25 138/74 (95) 98 01/28/17 12:00 70 01/28/17 11:45 89 13 139/73 (95) 99 01/28/17 11:30 92 28 135/74 (94) 99 01/28/17 11:15 93 22 140/73 (95) 98 01/28/17 11:00 94 23 139/74 (95) 96 01/28/17 10:45 96 23 150/78 (102) 99 01/28/17 10:30 94 15 148/79 (102) 98 01/28/17 10:15 97 25 147/79 (101) 98 01/28/17 10:00 70 01/28/17 10:00 100 11 161/83 (109) 98 01/28/17 09:45 98 20 151/75 (100) 100 01/28/17 09:39 95 01/28/17 09:30 100 20 151/80 (103) 97 01/28/17 09:15 98 21 156/78 (104) 95 I/O 01/28/17 01/28/17 01/28/17 01/29/17 01/29/17 01/29/17 07:00 15:00 23:00 07:00 15:00 23:00 Intake Total 100 ml 960 ml 600 ml Output Total 400 ml 600 ml 200 ml Balance -300 ml 360 ml 400 ml Intake Oral 100 ml 960 ml 600 ml IV Total 0 ml Output Urine Total 400 ml 600 ml 200 ml Stool Total 0 ml # Voids 3 # Bowel Movements 0 1 Result Diagram: 01/28/17 0530 01/28/17 0538 Imaging Last Impressions Chest X-Ray 01/26/172200 Signed Impressions: Service Date/Time: Thursday, January 26, 2017 22:23 - CONCLUSION: Mild hazy opacity in the lung bases are present atelectasis. [place] Ruiz MD Objective Remarks GENERAL: Patient sitting up in bed. Appears comfortable. SKIN: Warm and dry. HEAD: Normocephalic. EYES: No scleral icterus. No injection or drainage. NECK: Supple, trachea midline. CARDIOVASCULAR: Regular rate and rhythm without murmurs, gallops, or rubs. RESPIRATORY: Breath sounds equal bilaterally. No accessory muscle use. GASTROINTESTINAL: Abdomen soft, non-tender, nondistended. MUSCULOSKELETAL: No cyanosis, or edema. BACK: Nontender without obvious deformity. No CVA tenderness. Procedures none A/P Problem List: (1) Hypertension ICD Code: I10 - Essential (primary) hypertension Status: Acute (2) CHF (congestive heart failure) ICD Code: I50.9 - Heart failure, unspecified Status: Acute Assessment and Plan Accelerated hypertension with history of noncompliance. CHF exacerbation Aortic insufficiency on echo -Systolic blood pressure 240 on admission -With secondary CHF exacerbation. -Likely secondary to cough medicine. -Patient denies illicit drugs. Drug screen pending. -Counseled patient on avoiding cough medicine with decongestant Blood pressure not improved after diltiazem, Lasix in the ER. Nitroglycerin drip has been started. Wean and discontinue keep blood pressure less than 160/ 90 -Continue Coreg, daily Lasix, losartan expect to start isosorbide tomorrow. Add as needed IV hydralazine and by mouth clonidine -01/28. Still on nitro drip. However much better controlled today, systolic blood pressures in the 150s. Aortic insufficiency on echocardiogram. We'll start nitrates, hydralazine, increase amlodipine. Possibly worsened patient's cough medicine, although urine drug screen is still pending. Consult cardiology for new onset CHF. Troponin elevation. -Likely secondary to demand ischemia from accelerated hypertension. Troponin peaked at 0.07, down to 0.05. Cardiology will be consulted for CHF. Nonproductive cough past 3 weeks. Atelectasis on chest x-ray. Personally reviewed. -Improving. Continue ipratropium nebs, Incentive spirometer and Acapella Chronic kidney disease stage II. Avoid nephrotoxins. Continue to monitor closely while on Lasix and losartan. -01/28. Creatinine up to 1.8. Again, unknown baseline. We'll continue to monitor. If worsens, we'll consider consultation nephrology. Avoid TRUE inhibitor for now. Slightly elevated AST likely from passive congestion. Resolved. History of diabetes mellitus - Patient reports controlled with diet. A1c 9.0. Diabetic education. Continue Insulin sliding scale. start Levemir. Constipation. Laxatives ordered. DVT prophylaxis with SCD and early ambulation. Hold Pharmacological prophylaxis pending control of BP. Discharge Planning Expect blood pressure be better controlled by tomorrow, patient can possibly go home tomorrow. 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 May need insulin Self-pay. Appreciate cm assistance Problem Qualifiers (1) Hypertension: Qualified Codes: I10 - Essential (primary) hypertension (2) CHF (congestive heart failure): Qualified Codes: I50.9 - Heart failure, unspecified Dorita Thakur MD Jan 29, 2017 09:14
[2017-01-29] MEDS ORDERED: POTASSIUM CHLORIDE 10 MEQ CONTROLLED RELEASE TAB PO ONE (09:15)
[2017-01-29] MEDS: ISOSORBIDE DINITRATE 40 MG SUSTAINED RELEASE TAB PO SCH ×2 (09:32→14:08)
[2017-01-29] MEDS: CARVEDILOL 3.125 MG TAB PO SCH ×2 (09:34→21:15)
--- NOTE | 2017-01-29 13:02 | MB ---
cc: CRISTOBAL DUNCAN DO DATE OF CONSULTATION: 01/29/2017 REASON FOR CONSULTATION: Accelerated hypertension, congestive heart failure. HISTORY OF PRESENT ILLNESS: Herbert Carlson is a pleasant 61-year-old male who originally presented to [facility] emergency room on January 27, 2017 due to an elevated blood pressure. He previously was on medications for the past year for his hypertension but then stopped them. He also had been taking cough and cold medicine for the past two to three days. He then got in an argument with his significant other and felt that his blood pressure was high so he came into the emergency room. On arrival blood pressure was as high as 250/130. He was then started on a nitroglycerin drip and since has been weaned off nitroglycerin on to Coreg, isosorbide dinitrate, Norvasc and hydralazine. In speaking to the patient he states that he has never had chest pain or shortness of breath. He is currently relaxing in his room without complaints. PAST MEDICAL HISTORY 1. Hypertension not currently on medications. 2. Diabetes mellitus. PAST SURGICAL HISTORY Denies. ALLERGIES NO KNOWN DRUG ALLERGIES. MEDICATIONS Denies. FAMILY HISTORY: The patient is unsure what it is family history is at this time. SOCIAL HISTORY Denies tobacco, alcohol or illicit drug abuse. REVIEW OF SYSTEMS 14-systems were reviewed including osteopathic pertinent positives and negatives above otherwise negative. PHYSICAL EXAMINATION VITAL SIGNS: Temperature 98.6, heart rate 98, blood pressure 129/64, respirations 18, pulse ox 99% on room air. IN GENERAL: The patient appears well. No acute distress, alert awake and oriented x3. Extraocular muscles intact. Mucous membranes moist. NECK: Neck is supple. No jugular venous distention at 45 degrees. No carotid bruits heard bilaterally. Carotid upstroke is brisk in nature. HEART: Heart is regular rate and rhythm. Positive first and second heart sounds were noted. No murmurs, gallops or rubs. LUNGS: Clear to auscultation bilaterally. No wheezes, rales or rhonchi. ABDOMEN: Soft, nontender, nondistended. No organomegaly noted. EXTREMITIES: Show no clubbing, cyanosis or edema. Femoral and distal pulses intact. SKIN: Warm, dry and intact. NEUROLOGICALLY: No focal deficits. OSTEOPATHIC: Osteopathic with no kyphoscoliosis, lordosis or paraspinal tender points. LABORATORY FINDINGS Hemoglobin 10.4, hematocrit 31.4, platelets 148. Potassium 3.8, BUN 29, creatinine 1.85, hemoglobin A1c 9, troponin 0.07. Electrocardiogram (November 27, 2016 at 11:29) sinus rhythm, possible left atrial enlargement, probable LVH with secondary ST-T wave changes. No change from previous. IMPRESSION 1. Accelerated hypertension / hypertensive urgency. 2. Uncontrolled hypertension due to noncompliance. 3. Accelerated hypertension, possibly exacerbated by cough medications. 4. Uncontrolled diabetes mellitus. RECOMMENDATIONS 1. Mr. Carlson presented with a blood pressure of 251/130 and this is most likely due to noncompliance with medications as well as taking cough medication. 2. I spoke to him about avoiding cough medications that continued decongestants as this can raise her blood pressure. 3. I also spoke to him further about being on his medications as he has extensive hypertension. 4. Echocardiogram was done showing an ejection fraction of 60-65%, moderate concentric LVH, Mild aortic valve regurgitation, mild tricuspid valve regurgitation. 5. Troponin is minimally elevated this is most likely due to his extensive hypertension. 6. EKG does show minor changes but at this is felt to be due to secondary to LVH. 7. I did discuss with him consideration of stress testing but he would like to avoid at this time. 8. We will continue on his current medical regimen as it appears that this is controlling his blood pressure well as he has been weaned off of nitro drip. 9. No further cardiovascular workup at this time. Thank you for allowing me to see Herbert Carlson there are any questions please do not hesitate to call. Cristobal Duncan DO RY/concepcion /11:14 AM /12:52 PM
[2017-01-30] VITALS: BP 121/56; PULSE 90; RESP 17; TEMP 99.2; O2SAT 99
[2017-01-30] MEDS: CHLORHEXIDINE GLUCONATE 2 % 1 PACK (2 CLOTHS)(taper/protocol) TOPICAL SCH (03:39)
[2017-01-30 04:00] VITALS: BP 125/66; PULSE 92; RESP 18; TEMP 99.1; O2SAT 99
[2017-01-30] MEDS: RESP: IPRATROPIUM 0.5 MG/2.5 ML NEB NEB SCH ×2 (04:53→09:56)
[2017-01-30 04:55] VITALS: O2SAT 99
[2017-01-30] MEDS: hydrALAZINE HCL 50 MG TAB PO SCH ×2 (05:25→12:35)
[2017-01-30 07:53] LABS: AUTOMATED NEUTROPHIL # 3.4 TH/MM3 (1.8-7.7); BASOPHIL % 0.8 % (0.0-2.0); EOSINOPHIL # 0.2 TH/MM3 (0-0.4); EOSINOPHIL % 2.4 % (0.0-4.0); HEMATOCRIT 30.7 % (39.0-51.0); HEMO FLAGS DIFF FINAL; LYMPH % 27.4 % (9.0-44.0); LYMPHOCYTE # 1.7 TH/MM3 (1.0-4.8); MEAN CELL VOLUME 80.4 FL (80.0-100.0); MEAN CORPUSCULAR HEMOGLOBIN 26.5 PG (27.0-34.0); MEAN CORPUSCULAR HGB CONC 32.9 % (32.0-36.0); MONO % 15.5 % (0.0-8.0); NEUT % 53.9 % (16.0-70.0); PLATELET COUNT 150 TH/MM3 (150-450); RED BLOOD COUNT 3.83 MIL/MM3 (4.50-5.90); RED CELL DISTRIBUTION WIDTH 14.7 % (11.6-17.2); WHITE BLOOD COUNT 6.3 TH/MM3 (4.0-11.0)
[2017-01-30 08:15] LABS: BICARBONATE 24.8 MEQ/L (21.0-32.0); POTASSIUM 3.9 MEQ/L (3.5-5.1)
[2017-01-30] MEDS ORDERED: ASPIRIN 81 MG CHEW TAB CHEW SCH (09:00)
[2017-01-30] MEDS: INSULIN DETEMIR 100 UNITS/ML VIAL SQ SCH (09:00)
[2017-01-30 09:06] VITALS: BP 134/67; PULSE 94; RESP 18; TEMP 99.1; O2SAT 98
[2017-01-30] MEDS: CARVEDILOL 3.125 MG TAB PO SCH (09:29)
[2017-01-30] MEDS: INSULIN ASPART SUPPLEMENTAL SCALE SQ SCH ×2 (09:30→12:00)
[2017-01-30] MEDS: amLODIPine BESYLATE 5 MG TAB PO SCH (09:30)
[2017-01-30] MEDS: SODIUM CHLORIDE 0.9% FLUSH 10 ML FLUSH IV FLUSH SCH (09:30)
[2017-01-30] MEDS ORDERED: GLUCKIT15 (10:05)
[2017-01-30] MEDS ORDERED: LEVEMIR SQ (10:05)
[2017-01-30] MEDS ORDERED: BIOM30MI (10:05)
[2017-01-30] MEDS ORDERED: ISOR40CR PO (10:05)
[2017-01-30] MEDS ORDERED: ASPI81CH25 CHEW (10:05)
[2017-01-30] MEDS ORDERED: CARV3.125 PO (10:05)
[2017-01-30] MEDS ORDERED: GLUCTES12 (10:05)
[2017-01-30] MEDS ORDERED: HYDR-3800 PO (10:05)
[2017-01-30] MEDS ORDERED: INSU1MIS15 (10:05)
[2017-01-30] MEDS ORDERED: NOVOLOGP2 SQ (10:05)
[2017-01-30] MEDS ORDERED: LANCETS1 MI1 (10:05)
[2017-01-30] MEDS ORDERED: AMLO5 PO (10:05)
--- NOTE | 2017-01-30 10:05 | HHI.DS ---
Discharge Summary Admission Date Jan 27, 2017 at 00:13 Discharge Date: Jan 30, 2017 Admitting Diagnosis CHF, HTN (1) Hypertension ICD Code: I10 - Essential (primary) hypertension Status: Acute (2) CHF (congestive heart failure) ICD Code: I50.9 - Heart failure, unspecified Status: Acute Procedures none Brief History - From Admission 61-year-old male with a history of hypertension, not on medications for the past year, diabetes diet supposedly controlled who presents with a three-week history of mild nonproductive cough, 2 day history of generalized fatigue; he got into an argument today with his significant other, and felt that his blood pressure was high. He denies any chest pain or shortness of breath. Patient said he did start taking a cough/cold medicine 2 days ago, which correlates with the onset of his generalized fatigue. She denies any fevers, chills, nausea, vomiting, diarrhea, constipation, dysuria, headache. 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 CBC/BMP: 01/30/17 0650 01/30/17 0650 Significant Findings Laboratory Tests Test 01/27/17 12:25 01/28/17 05:30 01/28/17 05:38 01/28/17 18:18 Blood Urea Nitrogen 26 MG/DL (7-18) 29 MG/DL (7-18) Creatinine 1.76 MG/DL (0.60-1.30) 1.85 MG/DL (0.60-1.30) Random Glucose 278 MG/DL (74-106) 193 MG/DL (74-106) Estimat Glomerular Filtration Rate 48 ML/MIN (>89) 45 ML/MIN (>89) Red Blood Count 3.91 MIL/MM3 (4.50-5.90) Hemoglobin 10.4 GM/DL (13.0-17.0) Hematocrit 31.4 % (39.0-51.0) Mean Corpuscular Hemoglobin 26.7 PG (27.0-34.0) Platelet Count 148 TH/MM3 (150-450) Monocytes (%) (Auto) 14.1 % (0.0-8.0) Monocytes # (Auto) 1.1 TH/MM3 (0-0.9) Albumin 2.8 GM/DL (3.4-5.0) Test 01/30/17 06:50 Red Blood Count 3.83 MIL/MM3 (4.50-5.90) Hemoglobin 10.1 GM/DL (13.0-17.0) Hematocrit 30.7 % (39.0-51.0) Mean Corpuscular Hemoglobin 26.5 PG (27.0-34.0) Monocytes (%) (Auto) 15.5 % (0.0-8.0) Monocytes # (Auto) 1.0 TH/MM3 (0-0.9) Blood Urea Nitrogen 37 MG/DL (7-18) Creatinine 2.07 MG/DL (0.60-1.30) Random Glucose 124 MG/DL (74-106) Sodium Level 134 MEQ/L (136-145) Estimat Glomerular Filtration Rate 40 ML/MIN (>89) Imaging Last Impressions Chest X-Ray 01/26/171 Signed Impressions: Service Date/Time: Thursday, January 26, 2017 22:23 - CONCLUSION: Mild hazy opacity in the lung bases are present atelectasis. [place] Ruiz MD PE at Discharge GENERAL: Patient sitting up in bed. Appears comfortable. SKIN: Warm and dry. HEAD: Normocephalic. EYES: No scleral icterus. No injection or drainage. NECK: Supple, trachea midline. CARDIOVASCULAR: Regular rate and rhythm without murmurs, gallops, or rubs. RESPIRATORY: Breath sounds equal bilaterally. No accessory muscle use. GASTROINTESTINAL: Abdomen soft, non-tender, nondistended. MUSCULOSKELETAL: No cyanosis, or edema. BACK: Nontender without obvious deformity. No CVA tenderness. Pt update on day of discharge Feels better ambulating in the room BP is better controlled. No n/v/d/c. Denies chest pain or sob. No motor deficit. No headache, or change in vision. Wants to go home. Satting well on room air. Hospital Course Accelerated hypertension with history of noncompliance. CHF exacerbation Aortic insufficiency on echo -Systolic blood pressure 240 on admission -With secondary CHF exacerbation. -Likely secondary to cough medicine. -Patient denies illicit drugs. Drug screen pending. -Counseled patient on avoiding cough medicine with decongestant Blood pressure not improved after diltiazem, Lasix in the ER. Nitroglycerin drip has been started. Wean and discontinue keep blood pressure less than 160/ 90 -Continue Coreg, daily Lasix, losartan expect to start isosorbide tomorrow. Add as needed IV hydralazine and by mouth clonidine -01/28. Still on nitro drip. However much better controlled today, systolic blood pressures in the 150s. Aortic insufficiency on echocardiogram. We'll start nitrates, hydralazine, increase amlodipine. Possibly worsened patient's cough medicine, although urine drug screen is still pending. Consult cardiology for new onset CHF. Troponin elevation. -Likely secondary to demand ischemia from accelerated hypertension. Troponin peaked at 0.07, down to 0.05. Cardiology will be consulted for CHF. Nonproductive cough past 3 weeks. Atelectasis on chest x-ray. Personally reviewed. -Improving. Continue ipratropium nebs, Incentive spirometer and Acapella Chronic kidney disease stage II. Avoid nephrotoxins. Continue to monitor closely while on Lasix and losartan. -01/28. Creatinine up to 1.8. Again, unknown baseline. We'll continue to monitor. If worsens, we'll consider consultation nephrology. Avoid TRUE inhibitor for now. Slightly elevated AST likely from passive congestion. Resolved. History of diabetes mellitus - Patient reports controlled with diet. A1c 9.0. Diabetic education. Continue Insulin sliding scale. start Levemir. Constipation. Laxatives ordered. DVT prophylaxis with SCD and early ambulation. Hold Pharmacological prophylaxis pending control of BP. Discharge Planning Expect blood pressure be better controlled by tomorrow, patient can possibly go home tomorrow. outreach educator pending. May need insulin Self-pay. Appreciate cm assistance Pt Condition on Discharge: Stable Discharge Disposition: Discharge Home Discharge Time: > 30 minutes Discharge Instructions DIET: Follow Instructions for: Heart Healthy Diet Activities you can perform: Regular-No Restrictions Follow up Referrals: PCP Follow-up - 2-3 Days New Medications: Albuterol 18 GM Inh (Ventolin Hfa 18 GM Inh) 90 Mcg/Act Aer 2 PUFF INH Q4-6H PRN for SHORTNESS OF BREATH, #1 INHALER 0 Refills Blood Glucose Monitoring W/Device (Glucocom Blood Glucose Mo W/Device) 1 Kit Kit KIT .ROUTE DIRECTED for Blood Sugar Management, #1 Budesonide-Formoterol Inh (Symbicort Inh) 160-4.5 Mcg/Act Aero 1 PUFF INH Q12HR, #1 INHALER 0 Refills Glucocom Test Strips (Glucocom Test Strips) 1 Marielena Marielena EA .ROUTE DIRECTED for Blood Sugar Management, #1 Insulin Aspart Inj (Novolog Inj) 1,000 Unit/10 Ml Vial 1-9 UNITS SQ ACHS for Blood Sugar Management, #10 ML 0 Refills Max dose at bedtime:( )units; sugars less than 70,(0)units; sugars 150-199,(1) unit; sugars 200-249,(3) units; sugars 250-299,(5) units; sugars 300-349,(7) units; sugars greater than 349,(9) units Insulin Syringe/U-100/31G X 5/16" 1 ml (Insulin Syringe/U-100/31G X 5/16" 1 ml) 31 Gauge X 5/16" Mis EA .ROUTE DIRECTED for Blood Sugar Management, #1 0 Refills Ipratropium HFA 12.9 GM Inh (Atrovent HFA 12.9 GM Inh) 17 Mcg/Actuation Aer 2 PUFF INH Q6HR PRN for SHORTNESS OF BREATH, #1 INHALER 0 Refills Lancets (Lancets) 1 Mis Mis EA .ROUTE DIRECTED for Blood Sugar Management, #1 0 Refills Parenteral Therapy Supplies (Sharpsafety Sharps Contai) 1 Mis Mis EA .ROUTE DIRECTED, #1 0 Refills Amlodipine (Norvasc) 5 Mg Tab 10 MG PO DAILY for Blood Pressure Management, #30 TAB Aspirin (Aspirin Low Strength) 81 Mg Chew 81 MG CHEW DAILY for Blood Clot Prevention, #30 EA Carvedilol (Coreg) 3.125 Mg Tab 6.25 MG PO Q12HR for Blood Pressure Management, #60 TAB Hydralazine HCl (Hydralazine HCl) 50 Mg Tablet 50 MG PO Q8HR for Blood Pressure Management, #60 MG Insulin Detemir Inj (Levemir Inj) 1,000 unit/ 10 ML Vial 5 UNITS SQ Q12HR for Blood Sugar Management for 30 Days, INJECTION Do not mix with any other Insulin. Isosorbide Dinitrate ER (Isosorbide Dinitrate ER) 40 Mg Trinity 40 MG PO BID@08,14 for Blood Pressure Management, #30 TAB Dorita Thakur MD Jan 30, 2017 10:05
[2017-01-30] MEDS ORDERED: SYMB160A INH (10:07)
[2017-01-30] MEDS ORDERED: VENTAER INH (10:07)
[2017-01-30] MEDS ORDERED: IPRA17I INH (10:07)
[2017-01-30] MEDS ORDERED: SODIUM CHLORID 0.9% 500 ML INJ 500 ML IV ONE (10:15)
[2017-01-30 10:58] VITALS: PULSE 93
[2017-01-30 12:11] VITALS: BP 125/58; PULSE 89; RESP 18; TEMP 98.4; O2SAT 98
[2017-01-30] MEDS: ISOSORBIDE DINITRATE 40 MG SUSTAINED RELEASE TAB PO SCH (12:35)
--- NOTE | 2017-01-30 15:56 | PD.CARD.PN ---
Subjective Subjective Remarks Patient was seen earlier this afternoon No complaints Objective Medications Current Medications Sodium Chloride (NS Flush) 2 ml UNSCH PRN IVF FLUSH AFTER USING IV ACCESS; Start 01/26/17 at 22:15; Stop 01/27/17 at 00:28; Status DC Sodium Chloride 500 ml @ 500 mls/hr ONCE ONCE IV Last administered on 00:12; Start 01/26/17 at 22:15; Stop 01/26/17 at 23:14; Status DC Diltiazem HCl (Cardizem Inj) 20 mg ONCE ONCE IV Last administered on 00:12; Start 01/26/17 at 22:15; Stop 01/26/17 at 22:16; Status DC Nitroglycerin/ Dextrose 250 ml @ 1.5 mls/hr TITRATE ONCE IV Last administered on 01/27/17 00:36; Start 01/27/17 at 00:00; Stop 01/27/17 at 14:51 ; Status DC Furosemide (Lasix Inj) 40 mg ONCE ONCE IV PUSH Last administered on 01/27/17 00:24; Start 01/27/17 at 00:00; Stop 01/27/17 at 00:01; Status DC Sodium Chloride (NS Flush) 2 ml UNSCH PRN IV FLUSH FLUSH AFTER USING IV ACCESS ; Start 01/27/17 at 00:15; Stop 01/30/17 at 15:06; Status DC Sodium Chloride (NS Flush) 2 ml BID IV FLUSH Last administered on 01/30/17 09: 30; Start 01/27/17 at 09:00; Stop 01/30/17 at 15:06; Status DC Ondansetron HCl (Zofran Inj) 4 mg Q6H PRN IVP NAUSEA OR VOMITING Last administered on 01/29/17 12:29; Start 01/27/17 at 00:15; Stop 01/30/17 at 15:06 ; Status DC Naloxone HCl (Narcan Inj) 0.4 mg UNSCH PRN IV PUSH SEE LABEL COMMENTS; Start 01/27/17 at 00:15; Stop 01/30/17 at 15:06; Status DC Magnesium Hydroxide (Milk Of Magnesia Liq) 30 ml Q12H PRN PO Mild constipation ; Start 01/27/17 at 00:15; Stop 01/27/17 at 09:10; Status DC Sennosides (Senokot) 17.2 mg Q12H PRN PO Moderate constipation; Start 01/27/17 at 00:15; Stop 01/30/17 at 15:06; Status DC Bisacodyl (Dulcolax Supp) 10 mg DAILY PRN RECTAL SEVERE CONSITIPATION; Start 01/27/17 at 00:15; Stop 01/30/17 at 15:06; Status DC Lactulose (Lactulose Liq) 30 ml DAILY PRN PO SEVERE CONSITIPATION; Start at 00:15; Stop 01/30/17 at 15:06; Status DC Insulin Aspart (NovoLOG SUPPLEMENTAL SCALE) 1 ACHS SLIDING SCALE SQ ; Start at 08:00; Stop 01/27/17 at 09:10; Status DC Carvedilol (Coreg) 3.125 mg Q12HR PO Last administered on 01/27/17 09:22; Start 01/27/17 at 09:00; Stop 01/27/17 at 14:45; Status DC Carvedilol (Coreg) 3.125 mg ONCE ONCE PO Last administered on 01/27/17 01:36 ; Start 01/27/17 at 00:15; Stop 01/27/17 at 00:27; Status DC Lisinopril (Prinivil) 10 mg DAILY PO ; Start 01/27/17 at 09:00; Stop 01/27/17 at 09:00; Status DC Furosemide (Lasix) 20 mg DAILY PO Last administered on 01/27/17 09:22; Start 01/27/17 at 09:00; Stop 01/27/17 at 14:45; Status DC Losartan Potassium (Cozaar) 25 mg DAILY PO Last administered on 01/27/17 09:22 ; Start 01/27/17 at 09:00; Stop 01/27/17 at 14:45; Status DC Enalaprilat (Vasotec Inj) 1.25 mg Q6H PRN IV PUSH SBP>180, DBP>110 Last administered on 01/27/17 10:01; Start 01/27/17 at 00:45; Stop 01/27/17 at 10:30 ; Status DC Ipratropium [place] (Atrovent Neb) 0.5 mg Q6HR NEB NEB Last administered on 09:56; Start 01/27/17 at 00:45; Stop 01/30/17 at 15:06; Status DC Miscellaneous Information Patient in critical care unit? Ass... [id number] .[id number] ; Start 01/27/17 at 02:30; Stop 01/30/17 at 15:06; Status DC Chlorhexidine Gluconate (Chlorhexidine 2% Cloth) 3 pack DAILY@04 TOPICAL Last administered on 01/28/17 04:00; Start 01/27/17 at 04:00; Stop 01/30/17 at 15:06 ; Status DC Chlorhexidine Gluconate (Chlorhexidine 2% Cloth) 3 pack UNSCH PRN TOPICAL HYGIENIC CARE; Start 01/27/17 at 02:30; Stop 01/30/17 at 15:06; Status DC Insulin Aspart (NovoLOG SUPPLEMENTAL SCALE) 1 ACHS SLIDING SCALE SQ Last administered on 01/30/17 12:00; Start 01/27/17 at 12:00; Stop 01/30/17 at 15:06 ; Status DC Enalaprilat (Vasotec Inj) 1.25 mg Q6H PRN IV PUSH SBP> OR = 180, DBP> OR = 100 ; Start 01/27/17 at 10:30; Stop 01/27/17 at 14:45; Status DC Hydralazine HCl (Apresoline Inj) 10 mg Q6H PRN IV PUSH SBP> OR = 180, DBP> OR = 100 Last administered on 01/28/17 20:16; Start 01/27/17 at 10:30; Stop at 15:06; Status DC Clonidine (Catapres) 0.1 mg Q6H PRN PO SBP> OR = 180, DBP> OR = 100; Start 01/27/17 at 10:30; Stop 01/30/17 at 15:06; Status DC Dextrose (D50w (Vial) Inj) 50 ml UNSCH PRN IV PUSH HYPOGLYCEMIA - SEE COMMENTS ; Start 01/27/17 at 10:30; Stop 01/30/17 at 15:06; Status DC Glucagon (Glucagon Inj) 1 mg UNSCH PRN OTHER HYPOGLYCEMIA-SEE COMMENTS; Start 01/27/17 at 10:30; Stop 01/30/17 at 15:06; Status DC Carvedilol (Coreg) 6.25 mg Q12HR PO Last administered on 01/30/17 09:29; Start 01/27/17 at 21:00; Stop 01/30/17 at 15:06; Status DC Nitroglycerin/ Dextrose 250 ml @ 1.5 mls/hr TITRATE PRN IV Hypertension Last administered on 01/27/17 14:52; Start 01/27/17 at 14:45; Stop 01/30/17 at 15:06 ; Status DC Amlodipine Besylate (Norvasc) 5 mg DAILY PO Last administered on 01/28/17 10: 29; Start 01/27/17 at 14:45; Stop 01/28/17 at 17:14; Status DC Amlodipine Besylate (Norvasc) 10 mg DAILY PO Last administered on 01/30/17 09: 30; Start 01/29/17 at 09:00; Stop 01/30/17 at 15:06; Status DC Amlodipine Besylate (Norvasc) 5 mg ONCE ONCE PO Last administered on 19:10; Start 01/28/17 at 17:15; Stop 01/28/17 at 18:34; Status DC Isosorbide Dinitrate (Isordil Tembids Cr) 40 mg ONCE ONCE PO Last administered on 01/28/17 22:06; Start 01/28/17 at 18:30; Stop 01/28/17 at 18:35 ; Status DC Isosorbide Dinitrate (Isordil Tembids Cr) 40 mg BID@08,14 PO Last administered on 01/30/17 12:35; Start 01/29/17 at 08:00; Stop 01/30/17 at 15:06; Status DC Hydralazine HCl (Apresoline) 50 mg Q8HR PO Last administered on 01/30/17 12:35 ; Start 01/28/17 at 18:30; Stop 01/30/17 at 15:06; Status DC Insulin Detemir (Levemir Inj) 5 units Q12HR SQ Last administered on 01/30/17 09:00; Start 01/28/17 at 21:00; Stop 01/30/17 at 15:06; Status DC Senna/Docusate Sodium (Nadeen-Colace) 2 tab ONCE ONCE PO ; Start 01/28/17 at 18: 30; Stop 01/28/17 at 18:36; Status DC Potassium Chloride (KCl) 80 meq ONCE ONCE PO ; Start 01/29/17 at 09:15; Stop 01/29/17 at 09:16; Status UNV Aspirin (Aspirin Chew) 81 mg DAILY CHEW Last administered on 01/30/17t 09:30; Start 01/30/17 at 09:00; Stop 01/30/17 at 15:06; Status DC Sodium Chloride 500 ml @ 500 mls/hr BOLUS ONCE IV ; Start 01/30/17 at 10:15; Stop 01/30/17 at 11:14; Status DC Vital Signs / I&O Vital Signs Date Time Temp Pulse Resp B/P (MAP) Pulse Ox O2 Delivery O2 Flow Rate FiO2 01/30/17 12:11 98.4 89 18 125/58 (80) 98 01/30/17 10:58 93 01/30/17 09:06 99.1 94 18 134/67 (89) 98 01/30/17 04:55 99 01/30/17 04:00 99.1 92 18 125/66 (85) 99 01/30/17 00:00 99.2 90 17 121/56 (77) 99 01/29/17 20:43 103 01/29/17 20:35 95 21 01/29/17 20:00 98.3 102 18 146/70 (95) 99 01/29/17 17:35 98 21 01/29/17 16:00 98.0 100 20 133/69 (90) 94 I/O 01/29/17 01/29/17 01/29/17 01/30/17 01/30/17 01/30/17 07:00 15:00 23:00 07:00 15:00 23:00 Intake Total 600 ml 120 ml 0 ml Output Total 200 ml 150 ml 300 ml Balance 400 ml -30 ml -300 ml Intake Oral 600 ml 120 ml 0 ml IV Total 0 ml Output Urine Total 200 ml 150 ml 300 ml # Bowel Movements 1 0 Physical Exam GENERAL: NAD, AAOx3 SKIN: Warm and dry. HEAD: Atraumatic. Normocephalic. EYES: Pupils equal and round. No scleral icterus. No injection or drainage. ENT: No nasal bleeding or discharge. Mucous membranes pink and moist. NECK: Trachea midline. No JVD. CARDIOVASCULAR: Regular rate and rhythm. RESPIRATORY: No accessory muscle use. Clear to auscultation. Breath sounds equal bilaterally. GASTROINTESTINAL: Abdomen soft, non-tender, nondistended. Hepatic and splenic margins not palpable. MUSCULOSKELETAL: Extremities without clubbing, cyanosis, or edema. No obvious deformities. NEUROLOGICAL: Awake and alert. No obvious cranial nerve deficits. Motor grossly within normal limits. Five out of 5 muscle strength in the arms and legs. Normal speech. PSYCHIATRIC: Appropriate mood and affect; insight and judgment normal. Laboratory Laboratory Tests Test 01/30/17 06:50 White Blood Count 6.3 TH/MM3 Red Blood Count 3.83 MIL/MM3 Hemoglobin 10.1 GM/DL Hematocrit 30.7 % Mean Corpuscular Volume 80.4 FL Mean Corpuscular Hemoglobin 26.5 PG Mean Corpuscular Hemoglobin Concent 32.9 % Red Cell Distribution Width 14.7 % Platelet Count 150 TH/MM3 Mean Platelet Volume 10.0 FL Neutrophils (%) (Auto) 53.9 % Lymphocytes (%) (Auto) 27.4 % Monocytes (%) (Auto) 15.5 % Eosinophils (%) (Auto) 2.4 % Basophils (%) (Auto) 0.8 % Neutrophils # (Auto) 3.4 TH/MM3 Lymphocytes # (Auto) 1.7 TH/MM3 Monocytes # (Auto) 1.0 TH/MM3 Eosinophils # (Auto) 0.2 TH/MM3 Basophils # (Auto) 0.0 TH/MM3 CBC Comment DIFF FINAL Differential Comment Blood Urea Nitrogen 37 MG/DL Creatinine 2.07 MG/DL Random Glucose 124 MG/DL Calcium Level 8.5 MG/DL Sodium Level 134 MEQ/L Potassium Level 3.9 MEQ/L Chloride Level 99 MEQ/L Carbon Dioxide Level 24.8 MEQ/L Anion Gap 10 MEQ/L Estimat Glomerular Filtration Rate 40 ML/MIN Assessment and Plan Problem List: (1) Hypertensive urgency ICD Codes: I16.0 - Hypertensive urgency (2) Accelerated hypertension ICD Codes: I10 - Essential (primary) hypertension (3) Diabetes ICD Codes: E11.9 - Type 2 diabetes mellitus without complications Assessment and Plan 1) Blood pressure now controlled on meds 2) HTN urgency Due to non-compliance and cough medications Instructed to avoid cough medications 3) Cardiovascularly stable for discharge Cristobal Hassan DO Jan 30, 2017 15:56
--- NOTE | 2017-02-05 09:43 | PQ ---
Physician Query Response Document PATIENT: CHARLETTE MCCONNELL : 1955 ADMIT DATE: 01/27/2017 12:13 AM DISCH DATE: 01/30/2017 3:06 PM RESPONDING PROVIDER #: [email or web address] QUERY TEXT: CHF Acuity and Type Congestive Heart Failure is documented in the Medical Record. Please document the type and acuity (in cludes probable or suspected) Such as: Type: -- Systolic -- Diastolic -- Combined -- Other, please specify Acuity: -- Acute -- Chronic -- Acute on chronic -- Other, please specify Also please document the underlying cause of the CHF (includes probable or suspected) If you have any additional questions/comments and/or concerns, please do not hesitate to reach out to the [facility]I/Coding Hotline, Ext. [phone]. The patient's Clinical Indicators include: Discharge Summary lists both CHF exacerbation and new onset CHF. Echocardiogram performed 01/27/17: CONCLUSIONS Normal left ventricular size. Moderate concentric left ventricular hypertrophy. The left ventricular systolic function is normal with an estimated ejection fraction in the range of 60-65%. Normal wall motion. The left atrial size is mildly dilated. Discharge Summary in Diagnosis list: Troponin elevation. -Likely secondary to demand ischemia from accelerated hypertension Query created by: Delmy Barbosa on 02/03/2017 2:34 PM RESPONSE TEXT: Poss CHF with preserved EF. Echo with EF 60-65 %. Electronically signed by: Dorita Thakur MD 02/05/2017 9:38 AM
== END 2017-01-30 15:06 | disposition home or self-care (01) | DRG 305 ==
LOC: NEPC 21:19 → NEDA 01-27 00:13 → HIME 01-27 02:20 → N04A 01-29 12:53
PROVIDERS: ADMIT Hospitalist; ATTEND Hospitalist
PROC: B24BZZZ Ultrasonography of Heart with Aorta (ICD-10-PCS; principal; 2017-01-27)
DX: I16.0 Hypertensive urgency (principal); I24.8 Other forms of acute ischemic heart disease; E11.22 Type 2 diabetes mellitus with diabetic chronic kidney disease; N18.2 Chronic kidney disease, stage 2 (mild); I13.0 Hypertensive heart and chronic kidney disease with heart failure and stage 1 through stage 4 chronic kidney disease, or unspecified chronic kidney disease; I50.9 Heart failure, unspecified; E11.65 Type 2 diabetes mellitus with hyperglycemia; I35.1 Nonrheumatic aortic (valve) insufficiency; Z91.19 Patient's noncompliance with other medical treatment and regimen; T48.4X5A Adverse effect of expectorants, initial encounter; K59.00 Constipation, unspecified
CPT/HCPCS: 71010; 80048; 80053; 80307; 82550; 82552; 82948; 83036; 83735; 83880; 84484; 85025; 85610; 85730; 87641; 93005; 93306; 94150; 94640; 94664; 94667; 96374; J0360; J1815; J1940; J2405; J7040; J7644

== ENCOUNTER 2017-07-14 15:06 | Observation (INO) | payer SELFPAY ==
[~2017-07-14] VITALS: Ht 182.9 cm; Wt 87.0 kg
[2017-07-14] VITALS (8 sets, daily range): BP systolic 148–240; BP diastolic 77–120; PULSE 87–108; RESP 16–24; TEMP 98.1–98.6; O2SAT 96–100
[~2017-07-14 15:06] MED LIST changes: +AMLO5 PO; +ASPI81CH25 CHEW; +BIOM30MI; +CARV3.125 PO; +GLUCKIT15; +GLUCTES12; +HYDR-3800 PO; +INSU1MIS15; +IPRA17I INH; +ISOR40CR PO; +LANCETS1 MI1; +LEVEMIR SQ; -LOMO PO; +NOVOLOGP2 SQ; -PRIN10TA PO; +SYMB160A INH; +VENTAER INH; -ZOFR4TAB3 SL; -glucometer
[2017-07-14] MEDS ORDERED: METO25TA3 PO (15:26)
[2017-07-14] MEDS ORDERED: CLON0.1T PO (15:26)
[2017-07-14] MEDS ORDERED: METF1000 PO (15:28)
[2017-07-14] MEDS ORDERED: LABETALOL HCL 100 MG/20 ML VIAL IV PUSH ONE ×2 (15:30→16:45)
[2017-07-14] MEDS ORDERED: SODIUM CHLORIDE 0.9% FLUSH 10 ML FLUSH IVF PRN (15:30)
[2017-07-14] MEDS ORDERED: ASPIRIN 81 MG CHEW TAB PO ONE (15:30)
--- NOTE | 2017-07-14 15:38 | PD ---
HPI Chief Complaint: Hypertension Time Seen by Provider: 15:16 Travel History International Travel<30 days: No Contact w/Intl Traveler<30days: No Traveled to known affect area: No History of Present Illness HPI 62-year-old male presents to the emergency department via EMS from his primary care physician's office. The patient reports history of hypertension, diabetes , but has not taken any medications. He is taking metformin, and has not taken any of his hypertensive medications. According the patient, he hasn't taken them in several years. However, according to her chart, he was admitted here in January 2017 for hypertension, CHF with an elevated troponin. The patient states that he had a small episode of chest pressure while his primary care physician's office while they were taking his blood pressure. He states he did not have radiation of the pain and it lasted for several minutes and then went away. He has no chest pain at this time. Patient denies shortness of breath. Patient was sent in due to an elevated blood pressure. He was given clonidine and aspirin prior to arrival. The patient denies any abdominal pain. No nausea , vomiting, diarrhea. He reports some generalized fatigue. He denies any headache. No exacerbating or alleviating factors. Moderate severity. PFSH Past Medical History Cancer: No Cardiovascular Problems: Yes (HTN) Diabetes: Yes Patient Takes Glucophage: Yes Diminished Hearing: No Endocrine: No Genitourinary: No Hypertension: Yes Immune Disorder: No Musculoskeletal: No Neurologic: No Psychiatric: No Reproductive: No Respiratory: No Tetanus Vaccination: Unknown Influenza Vaccination: No Past Surgical History Surgical History: No Previous Surgery Body Medical Devices: No devices. Joint Replacement: No Social History Alcohol Use: No Tobacco Use: No Substance Use: No Allergies-Medications (Allergen,Severity, Reaction): Coded Allergies: No Known Allergies (Verified Allergy, Unknown, 07/14/17) Reported Meds & Prescriptions Reported Meds & Active Scripts Active Reported Metformin (Metformin HCl) 1,000 Mg Tab 1,000 Mg PO BIDPC Metoprolol Tartrate 25 Mg Tab 25 Mg PO BID Clonidine (Clonidine HCl) 0.1 Mg Tab 0.1 Mg PO DAILY Review of Systems Except as stated in HPI: all other systems reviewed are Neg Physical Exam Narrative GENERAL: Well-nourished, well-developed male patient, afebrile. SKIN: Focused skin assessment warm/dry. HEAD: Normocephalic. Atraumatic. ENT: Mucosa pink and moist. No erythema or exudates. No uvular edema. No uvular , palatal, or tonsillar deviation. Airway patent. Nasal turbinates appear normal without nasal blood, purulent drainage or septal hematoma. Bilateral tympanic membranes are clear without erythema or perforation. EYES: No scleral icterus. No injection or drainage. NECK: Supple, trachea midline. No JVD or lymphadenopathy. CARDIOVASCULAR: Regular rate and rhythm without murmurs, gallops, or rubs. Bilateral radial and pedal pulses are 2+. RESPIRATORY: Breath sounds equal bilaterally. No accessory muscle use. Lungs sounds are clear to auscultation. GASTROINTESTINAL: Abdomen soft, non-tender, nondistended. MUSCULOSKELETAL: No cyanosis, or edema. BACK: Nontender without obvious deformity. No CVA tenderness. Data Data Last Documented VS Vital Signs Date Time Temp Pulse Resp B/P (MAP) Pulse Ox O2 Delivery O2 Flow Rate FiO2 07/14/17 18:24 87 148/77 (100) 07/14/17 16:35 19 100 Room Air 07/14/17 15:17 98.6 Orders Orders Electrocardiogram (07/14/17 15:28) Basic Metabolic Panel (Bmp) (07/14/17 15:28) B-Type Natriuretic Peptide (07/14/17 15:28) Ckmb (Isoenzyme) Profile (07/14/17 15:28) Complete Blood Count With Diff (07/14/17 15:28) Magnesium (Mg) (07/14/17 15:28) Prothrombin Time / Inr (Pt) (07/14/17 15:28) Act Partial Throm Time (Ptt) (07/14/17 15:28) Troponin I (07/14/17 15:28) Ecg Monitoring (07/14/17 15:28) Bilateral Bp Monitoring (07/14/17 15:28) Iv Access Insert/Monitor (07/14/17 15:28) Oximetry (07/14/17 15:28) Oxygen Administration (07/14/17 15:28) Aspirin Chew (Aspirin Chew) (07/14/17 15:30) Sodium Chloride 0.9% Flush (Ns Flush) (07/14/17 15:30) Chest, Pa & Lat (07/14/17 15:28) Labetalol Inj (Trandate Inj) (07/14/17 15:30) Labetalol Inj (Trandate Inj) (07/14/17 16:45) Thyroid Stimulating Hormone (07/14/17 16:43) CKMB (07/14/17 15:54) CKMB% (07/14/17 15:54) Hydralazine Inj (Apresoline Inj) (07/14/17 17:45) Hydralazine Inj (Apresoline Inj) (07/14/17 18:15) Lisinopril (Prinivil) (07/14/17 18:15) Admit Order (Ed Use Only) (07/14/17 18:29) Labs Laboratory Tests Test 07/14/17 15:54 White Blood Count 5.0 TH/MM3 Red Blood Count 4.10 MIL/MM3 Hemoglobin 11.1 GM/DL Hematocrit 33.1 % Mean Corpuscular Volume 80.8 FL Mean Corpuscular Hemoglobin 27.0 PG Mean Corpuscular Hemoglobin Concent 33.5 % Red Cell Distribution Width 14.2 % Platelet Count 162 TH/MM3 Mean Platelet Volume 9.6 FL Neutrophils (%) (Auto) 56.7 % Lymphocytes (%) (Auto) 28.2 % Monocytes (%) (Auto) 12.5 % Eosinophils (%) (Auto) 1.8 % Basophils (%) (Auto) 0.8 % Neutrophils # (Auto) 2.8 TH/MM3 Lymphocytes # (Auto) 1.4 TH/MM3 Monocytes # (Auto) 0.6 TH/MM3 Eosinophils # (Auto) 0.1 TH/MM3 Basophils # (Auto) 0.0 TH/MM3 CBC Comment DIFF FINAL Differential Comment Prothrombin Time 11.3 SEC Prothromb Time International Ratio 1.1 RATIO Activated Partial Thromboplast Time 24.5 SEC Blood Urea Nitrogen 38 MG/DL Creatinine 2.06 MG/DL Random Glucose 181 MG/DL Calcium Level 9.4 MG/DL Magnesium Level 2.1 MG/DL Sodium Level 136 MEQ/L Potassium Level 4.7 MEQ/L Chloride Level 102 MEQ/L Carbon Dioxide Level 27.0 MEQ/L Anion Gap 7 MEQ/L Estimat Glomerular Filtration Rate 40 ML/MIN Total Creatine Kinase 213 U/L Creatine Kinase MB 3.5 NG/ML Troponin I LESS THAN 0.02 NG/ML B-Type Natriuretic Peptide 119 PG/ML Thyroid Stimulating Hormone 3rd Gen 1.300 uIU/ML MDM Medical Decision Making Medical Screen Exam Complete: Yes Emergency Medical Condition: Yes Medical Record Reviewed: Yes Differential Diagnosis Accelerated hypertension versus hypertensive urgency versus hypertensive emergency versus ACS Narrative Course 62-year-old male presents to the emergency department via EMS for evaluation of severe chest pressure and hypertension. Patient received clonidine 0.1 mg and aspirin 3 224 mg by mouth prior to arrival. Blood pressure on arrival is 240/ 116. EKG, CBC, BMP, BNP, CK, troponin, magnesium, PTT, PT/INR, chest x-ray are ordered and pending. Patient is given labetalol 20 mg IV. EKG shows no change since previous EKG. CBC shows no acute abnormality. BMP shows BUN 38, 22.06 which is similar to previous, glucose 181. BNP is 119. CK is 213. Troponin is less than 0.02. Magnesium is 2.1. Coags are unremarkable. Chest x-ray shows no acute disease. The patient is given additional labetalol 10 mg IV without improvement. Patient is given given hydralazine 20 mg IV. Blood pressure has come down. He' ll be admitted to chest pain center for further evaluation. He agrees to this. Diagnosis Primary Impression: Chest pain Qualified Codes: R07.9 - Chest pain, unspecified Additional Impression: Hypertension Qualified Codes: I10 - Essential (primary) hypertension Admitting Information Admitting Physician Requests: Eileen Murillo Jul 14, 2017 15:38
--- NOTE | 2017-07-14 16:01 | RADRPT ---
EXAM DATE/TIME: 07/14/2017 15:49 [facility] COMPARISON: No previous studies available for comparison. INDICATIONS : Chest pain. Hypertension. MEDICAL HISTORY : Hypertension. Diabetes. SURGICAL HISTORY : None. ENCOUNTER: Initial ACUITY: 1 week PAIN SCORE: 3/10 LOCATION: Bilateral chest FINDINGS: PA and lateral views of the chest demonstrate the lungs to be symmetrically aerated without evidence of mass, infiltrate or effusion. The cardiomediastinal contours are unremarkable. Osseous structure s are intact. CONCLUSION: No acute disease. Shane Martínez MD FACR on July 14, 2017 at 15:59 Board Certified Radiologist. This report was verified electronically.
[2017-07-14 16:12] LABS: AUTOMATED NEUTROPHIL # 2.8 TH/MM3 (1.8-7.7); BASOPHIL % 0.8 % (0.0-2.0); EOSINOPHIL # 0.1 TH/MM3 (0-0.4); EOSINOPHIL % 1.8 % (0.0-4.0); HEMATOCRIT 33.1 % (39.0-51.0); HEMOGLOBIN 11.1 GM/DL (13.0-17.0); LYMPH % 28.2 % (9.0-44.0); LYMPHOCYTE # 1.4 TH/MM3 (1.0-4.8); MEAN CELL VOLUME 80.8 FL (80.0-100.0); MEAN CORPUSCULAR HGB CONC 33.5 % (32.0-36.0); MEAN PLATELET VOLUME 9.6 FL (7.0-11.0); MONO % 12.5 % (0.0-8.0); MONOCYTE # 0.6 TH/MM3 (0-0.9); NEUT % 56.7 % (16.0-70.0); PLATELET COUNT 162 TH/MM3 (150-450); RED CELL DISTRIBUTION WIDTH 14.2 % (11.6-17.2)
[2017-07-14 16:17] LABS: INTERNATIONAL NORMALIZED RATIO 1.1 RATIO; PROTHROMBIN TIME - PATIENT 11.3 SEC (9.8-11.6)
[2017-07-14 16:46] LABS: BLOOD UREA NITROGEN 38 MG/DL (7-18); CALCIUM 9.4 MG/DL (8.5-10.1); CHLORIDE 102 MEQ/L (98-107); CREATININE 2.06 MG/DL (0.60-1.30); GLOMERULAR FILTRATION RATE 40 ML/MIN (>89); GLUCOSE,RANDOM 181 MG/DL (74-106); MAGNESIUM 2.1 MG/DL (1.5-2.5); SODIUM (NA) 136 MEQ/L (136-145); TROPONIN I LESS THAN 0.02 NG/ML (0.02-0.05)
[2017-07-14] MEDS ORDERED: hydrALAZINE HCL 20 MG/ML VIAL IV PUSH ONE ×2 (17:45→18:15)
[2017-07-14] MEDS ORDERED: LISINOPRIL 10 MG TAB PO ONE (18:15)
[2017-07-14] MEDS ORDERED: SODIUM CHLORIDE 0.9% FLUSH 10 ML FLUSH IV FLUSH PRN (18:45)
[2017-07-14] MEDS ORDERED: cloNIDine HCL 0.1 MG TAB PO PRN (18:45)
[2017-07-14 21:41] LABS: TROPONIN I LESS THAN 0.02 NG/ML (0.02-0.05)
[2017-07-15] MEDS ORDERED: amLODIPine BESYLATE 5 MG TAB PO ONE (00:45)
[2017-07-15 01:07] LABS: TROPONIN I LESS THAN 0.02 NG/ML (0.02-0.05)
[2017-07-15 05:02] VITALS: BP 128/75; PULSE 87; RESP 17; TEMP 98.2; O2SAT 99
[2017-07-15 07:00] VITALS: PULSE 90
[2017-07-15 08:05] VITALS: BP 141/74; PULSE 93; RESP 18; TEMP 98.4; O2SAT 98
[2017-07-15] MEDS ORDERED: amLODIPine BESYLATE 5 MG TAB PO SCH (09:00)
--- NOTE | 2017-07-15 09:28 | HHI.HP ---
HPI Primary Care Physician Non-Staff Chief Complaint This is a 62-year-old male that presents to ED via [facility] from his primary care physician's office to be evaluated for hypertension and chest discomfort. States he saw his physician for the first time. States his hypertension but has not been taking medications for some time as he had no local provider. While he was in the office he was having some chest discomfort and EMS was summoned. States the symptoms lasted for a little more than 20 minutes. Denies shortness of breath, nausea, or diaphoresis. Voices compliance with his metformin. Currently denies chest discomfort. Denies recent illnesses. Review of Systems General: Patient denies fevers, chills and recent travel. HEENT: Patient denies headache, sore throat, difficulty swallowing. Cardiovascular: Has the chest discomfort as mentioned above. Denies sensation of heart beating rapidly or irregularly. No syncope. Denies diaphoresis. Respiratory: Denies shortness of breath or inspirational chest discomfort. Denies coughing wheezing or hemoptysis. GI: Patient denies nausea, vomiting, diarrhea, abdominal pain, bloody stools. Musculoskeletal: Patient denies joint pain or edema. Denies calf pain or edema. Neurovascular: Patient denies numbness, tingling, weakness in extremities. Denies headache. Endocrine: Denies polyuria and polydipsia. Hematologic: Denies easy bruising. Skin: Denies rash or itching. Past Family Social History Allergies: Coded Allergies: No Known Allergies (Verified Allergy, Unknown, 07/14/17) Past Medical History Hypertension with noncompliance. Has been on medications for a while. Diabetes , states he has been taking metformin. Chronic kidney disease. Denies hyperlipidemia. Denies known coronary artery disease. Past smoker. Past Surgical History Denies prior surgeries. Reported Medications Reported Meds & Active Scripts Active Reported Metformin (Metformin HCl) 1,000 Mg Tab 1,000 Mg PO BIDPC Metoprolol Tartrate 25 Mg Tab 25 Mg PO BID Active Ordered Medications Current Medications Medications (Trade) Dose Ordered Sig/Berto Route Start Time Stop Time Status Last Admin (NS Flush) 2 ml UNSCH PRN IVF 07/14/17 15:30 (NS Flush) 2 ml UNSCH PRN IV FLUSH 07/14/17 18:45 (Catapres) 0.1 mg Q6H PRN PO 07/14/17 18:45 (Norvasc) 5 mg DAILY PO 07/15/17 09:00 07/15/17 08:33 (NovoLOG SUPPLEMENTAL SCALE) 1 ACHS SLIDING SCALE SQ 07/15/17 12:00 UNV Family History Denies family history of CAD. Social History Not smoking. Denies alcohol or illicit drug use. Physical Exam Vital Signs Vital Signs Date Time Temp Pulse Resp B/P (MAP) Pulse Ox O2 Delivery O2 Flow Rate FiO2 07/15/17 08:05 98.4 93 18 141/74 (96) 98 07/15/17 05:02 98.2 87 17 128/75 (92) 99 07/14/17 23:37 107 07/14/17 23:23 98.1 108 16 210/97 (134) 96 07/14/17 22:11 98.4 105 17 199/97 (131) 97 07/14/17 19:37 07/14/17 18:24 87 148/77 (100) 07/14/17 18:01 93 198/93 (128) 07/14/17 17:28 92 215/120 (151) 07/14/17 16:35 90 19 204/107 (139) 100 Room Air 07/14/17 15:17 98.6 95 24 240/116 (157) 100 Physical Exam GENERAL: This is a well-nourished, well-developed patient, in no apparent distress. Patient speaks in clear complete sentences. Patient is pleasant. HEENT: Head is atraumatic and normocephalic. Neck is supple without lymphadenopathy and trachea is midline. No JVD or carotid bruits. CARDIOVASCULAR: Regular rate and rhythm without murmurs, gallops, or rubs. RESPIRATORY: Clear to auscultation. Breath sounds equal bilaterally. No wheezes , rales, or rhonchi. Chest wall is nontender. No use of accessory muscles. GASTROINTESTINAL: Abdomen is nontender, nondistended. Abdomen soft. No obvious pulsatile mass or bruit. No CVA tenderness. Strong femoral pulses bilaterally. Normal bowel sounds in all quadrants. MUSCULOSKELETAL: Patient is moving upper and lower extremities freely. No calf tenderness or edema, no Homans sign. Strong pulses in upper and lower extremities. NEUROLOGICAL: Patient is alert and oriented. Cranial nerves 2-12 are grossly intact. No focal deficits and speech is clear. SKIN: No rash and turgor is normal. Laboratory Laboratory Tests Test 07/14/17 15:54 07/14/17 20:40 07/14/17 23:35 White Blood Count 5.0 Red Blood Count 4.10 Hemoglobin 11.1 Hematocrit 33.1 Mean Corpuscular Volume 80.8 Mean Corpuscular Hemoglobin 27.0 Mean Corpuscular Hemoglobin Concent 33.5 Red Cell Distribution Width 14.2 Platelet Count 162 Mean Platelet Volume 9.6 Neutrophils (%) (Auto) 56.7 Lymphocytes (%) (Auto) 28.2 Monocytes (%) (Auto) 12.5 Eosinophils (%) (Auto) 1.8 Basophils (%) (Auto) 0.8 Neutrophils # (Auto) 2.8 Lymphocytes # (Auto) 1.4 Monocytes # (Auto) 0.6 Eosinophils # (Auto) 0.1 Basophils # (Auto) 0.0 CBC Comment DIFF FINAL Differential Comment Prothrombin Time 11.3 Prothromb Time International Ratio 1.1 Activated Partial Thromboplast Time 24.5 Blood Urea Nitrogen 38 Creatinine 2.06 Random Glucose 181 Calcium Level 9.4 Magnesium Level 2.1 Sodium Level 136 Potassium Level 4.7 Chloride Level 102 Carbon Dioxide Level 27.0 Anion Gap 7 Estimat Glomerular Filtration Rate 40 Total Creatine Kinase 213 203 210 Creatine Kinase MB 3.5 2.5 2.7 Troponin I LESS THAN 0.02 LESS THAN 0.02 LESS THAN 0.02 B-Type Natriuretic Peptide 119 Thyroid Stimulating Hormone 3rd Gen 1.300 Result Diagram: 07/14/17 1554 07/14/17 1554 Imaging Last 48 hours Impressions Chest X-Ray 07/14/17 1528 Signed Impressions: Service Date/Time: Friday, July 14, 2017 15:49 - CONCLUSION: No acute disease. Shane Martínez MD FACR Course EKGs are sinus rhythm with ST-T changes. Caprini VTE Risk Assessment Caprini VTE Risk Assessment: Mod/High Risk (score >= 2) Caprini Risk Assessment Model Point Value = 1 Point Value = 2 Point Value = 3 Point Value = 5 Age 41-60 Minor surgery BMI > 25 kg/m2 Swollen legs Varicose veins or History of unexplained or recurrent spontaneous Oral contraceptives or hormone replacement Sepsis (< 1 month) Serious lung disease, including pneumonia (< 1 month) Abnormal pulmonary function Acute myocardial infarction Congestive heart failure (< 1 month) History of inflammatory bowel disease Medical patient at bed rest Age 61-74 Arthroscopic surgery Major open surgery (> 45 min) Laparoscopic surgery (> 45 min) Malignancy Confined to bed (> 72 hours) Immobilizing plaster cast Central venous access Age >= 75 History of VTE Family history of VTE Factor V Leiden Prothrombin [id number] Lupus anticoagulant Anticardiolipin antibodies Elevated serum homocysteine Heparin-induced thrombocytopenia Other congenital or acquired thrombophilia Stroke (< 1 month) Elective arthroplasty Hip, pelvis, or leg fracture Acute spinal cord injury (< 1 month) Prophylaxis Regimen Total Risk Factor Score Risk Level Prophylaxis Regimen 0-1 Low Early ambulation 2 Moderate Order ONE of the following: *Sequential Compression Device (SCD) *Heparin 5000 units SQ BID 3-4 Higher Order ONE of the following medications: *Heparin 5000 units SQ TID *Enoxaparin/Lovenox 40 mg SQ daily (WT < 150 kg, CrCl > 30 mL/min) *Enoxaparin/Lovenox 30 mg SQ daily (WT < 150 kg, CrCl > 10-29 mL/min) *Enoxaparin/Lovenox 30 mg SQ BID (WT < 150 kg, CrCl > 30 mL/min) AND/OR *Sequential Compression Device (SCD) 5 or more Highest Order ONE of the following medications: *Heparin 5000 units SQ TID (Preferred with Epidurals) *Enoxaparin/Lovenox 40 mg SQ daily (WT < 150 kg, CrCl > 30 mL/min) *Enoxaparin/Lovenox 30 mg SQ daily (WT < 150 kg, CrCl > 10-29 mL/min) *Enoxaparin/Lovenox 30 mg SQ BID (WT < 150 kg, CrCl > 30 mL/min) AND *Sequential Compression Device (SCD) Assessment and Plan Assessment and Plan * Chest pain: Patient has had serial cardiac enzymes and EKGs for ruling out purposes. He was seen by Dr. Acosta Villalobos of cardiology in the chest pain center. He will undergo a Lexiscan. He will be discharged home if the stress test is nonischemic with instructions to follow-up with his physician. Return to ED for interval issues. * Hypertension: Patient was given a dose of amlodipine which improved his blood pressure significantly. We will continue amlodipine. * Chronic kidney disease: This was discussed with the patient to try to relate a very importance of following up with his physician regarding his chronic kidney disease. * Diabetes: We will hold metformin at this time. He will be on sliding scale insulin coverage and resume medication at discharge. He should follow diabetic diet. Denies history of hyperlipidemia but with his history of diabetes he should be on a statin. We will start this and give him a month supply but he will need follow-up with PCP for LFTs. Patient is stable at this time. He is agreeable to this plan. Herbert Mccracken Jul 15, 2017 09:28
[2017-07-15] MEDS ORDERED: DEXTROSE 50% IN WATER 50 ML VIAL(D50) IV PUSH PRN (09:30)
[2017-07-15] MEDS ORDERED: GLUCAGON 1 MG/ML VIAL OTHER PRN (09:30)
--- NOTE | 2017-07-15 09:30 | HHI.DCPOC ---
Discharge Care Plan Diagnosis: (1) CKD (chronic kidney disease) (2) Chest pain (3) Diabetes (4) Hypertension Goals to Promote Your Health You will be started on a cholesterol medication secondary to history of diabetes. You need to follow-up with your PCP and have LFTs (liver function tests) checked within the month. Need to follow your chronic kidney disease closely with you for her primary care physician. * To prevent worsening of your condition and complications * To maintain your health at the optimal level Directions to Meet Your Goals Take your medications as prescribed Follow your dietary instruction Follow activity as directed Keep your appointments as scheduled Take your immunizations and boosters as scheduled If your symptoms worsen call your PCP, if no PCP go to Urgent Care Center or Emergency Room Smoking is Dangerous to Your Health. Avoid second hand smoke Call the 24-hour hour crisis hotline for domestic abuse at Herbert Mccracken Jul 15, 2017 09:30
--- NOTE | 2017-07-15 09:57 | EKG ---
Date Performed: 07/15/2017 Time Performed: 01:15:37 PTAGE: 62 years EKG: Sinus rhythm ST DEVIATION AND MODERATE T-WAVE ABNORMALITY, CONSIDER ANTEROLATERAL ISCHEMIA ST DEVIATION AND MODER ATE T-WAVE ABNORMALITY, CONSIDER INFERIOR ISCHEMIA ABNORMAL ECG PREVIOUS TRACING : 07/14/2017 22.24 Since previous tracing, no significant change noted DOCTOR: Acosta Villalobos Interpretating Date/Time 07/15/2017 09:55:28
--- NOTE | 2017-07-15 09:58 | EKG ---
Date Performed: 07/14/2017 Time Performed: 22:24:44 PTAGE: 62 years EKG: SINUS TACHYCARDIA SEPTAL MYOCARDIAL INFARCTION MODERATE T-WAVE ABNORMALITY, CONSIDER LATERA L ISCHEMIA MODERATE T-WAVE ABNORMALITY, CONSIDER INFERIOR ISCHEMIA ABNORMAL ECG PREVIOUS TRACING : 07/14/2017 18.46 Since previous tracing, no significant change noted DOCTOR: Acosta Villalobos Interpretating Date/Time 07/15/2017 09:56:21
--- NOTE | 2017-07-15 09:59 | EKG ---
Date Performed: 07/14/2017 Time Performed: 15:40:21 PTAGE: 62 years EKG: Sinus rhythm POSSIBLE LEFT ATRIAL ENLARGEMENT ST DEVIATION AND MODERATE T-WAVE ABNORMALITY, CONSIDER LATERAL ISCH EMIA ST DEVIATION AND MODERATE T-WAVE ABNORMALITY, CONSIDER INFERIOR ISCHEMIA ABNORMAL ECG PREVIOUS TRACING : 01/27/2017 07.11 Since previous tracing, no significant change noted DOCTOR: Acosta Villalobos Interpretating Date/Time 07/15/2017 09:58:14
--- NOTE | 2017-07-15 09:59 | EKG ---
Date Performed: 07/14/2017 Time Performed: 18:46:08 PTAGE: 62 years EKG: Sinus rhythm ST DEVIATION AND MODERATE T-WAVE ABNORMALITY, CONSIDER LATERAL ISCHEMIA ABNORMAL ECG PREVIOUS TRACING : 07/14/2017 15.40 Since previous tracing, no significant change noted DOCTOR: Acosta Villalobos Interpretating Date/Time 07/15/2017 09:57:05
[2017-07-15] MEDS ORDERED: REGADENOSON INJ 0.4 MG/5 ML SYR ONE (11:15)
[2017-07-15] MEDS ORDERED: INSULIN ASPART SUPPLEMENTAL SCALE SQ SCH (12:00)
[2017-07-15 12:15] VITALS: BP 184/95; PULSE 103; RESP 18; TEMP 98.3; O2SAT 100
--- NOTE | 2017-07-15 12:23 | RADRPT ---
EXAM DATE/TIME: 07/15/2017 10:50 [facility] COMPARISON: CHEST PA & LAT, July 14, 2017, 15:49. INDICATIONS : Chest pain with elevated blood pressure. Angina. DOSE: 25.5 mCi Tc99m Myoview at stress. 8.4 mCi Tc99m Myoview at rest. 0.4 mg Lexiscan STRESS SYMPTOMS: None noted. EJECTION FRACTION: 46% MEDICAL HISTORY : Hypertension. Diabetes mellitus type 2. SURGICAL HISTORY : None. ENCOUNTER: Initial ACUITY: 1 day PAIN SCALE: 3/10 LOCATION: chest TECHNIQUE: The patient underwent pharmacologic stress with infusion of prescribed dose. Continuous ECG tracing was monitored during stress. Gated SPECT imaging was performed after stress and conventional SPECT i maging was performed at rest. The examination was performed on a SPECT/CT scanner, both attenuation and non-corrected datasets were reviewed. FINDINGS: DISTRIBUTION: The maximum perfused segment at stress is along the septum. PERFUSION STUDY: No definite fixed or reversible perfusion defect is identified. GATED STUDY: There is intact wall motion and thickening without hypokinetic or dyskinetic segments. CONCLUSION: 1. No definite fixed or reversible perfusion defect is identified. 2. Normal left ventricle wall motion with mildly decreased ejection fraction calculated at 46%. RISK CATEGORY: Intermediate (1-3% Annual Mortality Rate) Last Garrett MD on July 15, 2017 at 12:18 Board Certified Radiologist. This report was verified electronically.
[2017-07-15] MEDS ORDERED: METOPROLOL TARTRATE 25 MG TAB PO SCH (12:45)
[2017-07-15] MEDS ORDERED: LOVA40TA PO (14:05)
[2017-07-15] MEDS ORDERED: AMLO5TAB2 PO (14:05)
--- NOTE | 2017-07-17 11:39 | TR ---
Date Performed: 07/15/2017 Time Performed: 11:15:17 DOCTOR: Gilberto Wills DRUG LIST: CLINICAL HISTORY: ANGINA REASON FOR TEST: Angina REASON FOR ENDING: OBSERVATION: CONCLUSION: COMMENTS: Lexiscan stress test was performed under standard four minute protocol. Radionuclide was injected one minute prior to ending the test. No electrocardiographic abormalities were present t o suggest ischemia. Nuclear imaging and interpretation are pending.
== END 2017-07-15 16:00 | disposition home or self-care (01) ==
LOC: NEPC 15:06 → NEDA 18:31 → NEPFCDU 19:21
PROVIDERS: ADMIT Internal Medicine Cardiovascular Disease; ATTEND Internal Medicine Cardiovascular Disease
DX: N18.9 Chronic kidney disease, unspecified (principal); R07.89 Other chest pain; I13.0 Hypertensive heart and chronic kidney disease with heart failure and stage 1 through stage 4 chronic kidney disease, or unspecified chronic kidney disease; E11.22 Type 2 diabetes mellitus with diabetic chronic kidney disease; R94.31 Abnormal electrocardiogram [ECG] [EKG]; Z79.84 Long term (current) use of oral hypoglycemic drugs; Z87.891 Personal history of nicotine dependence
CPT/HCPCS: 71046; 78452; 80048; 82550; 82552; 82948; 83735; 83880; 84443; 84484; 85025; 85610; 85730; 93005; 93017; 96374; 96375; 96376; 99285; A9502; G0378; J0360; J2785